=== PATIENT | male | born 1950 | race Caucasian/White ===

== ENCOUNTER 2019-07-25 08:28 | Inpatient (IN) ==
--- NOTE | 2019-07-08 16:31 | PAT Medication Instructions ---
Medication Instructions Date of Service July 08, 2019 Home Medications Medication Instructions Recorded leuprolide (3 month) 22.5 mg (3 22.5 mg IM ONCE #1 ea 06/11/19 month) intramuscular syringe kit amlodipine 10 mg PO QAM lisinopril-hydrochlorothiazide 1 tab PO QAM omeprazole 20 mg PO QAM pravastatin 10 mg PO QPM aspirin 81 mg tablet,delayed release 81 mg PO cartilage 40 mg-collagen II-boron 5 mg-hyaluronate sod 3.3 mg tablet 1 tab PO QAM cyclobenzaprine 10 mg tablet 10 mg PO HS ibuprofen 200 mg tablet 200 mg PO Q6H PRN sildenafil (pulm.hypertension) 20 mg tablet 40 mg PO DAILY PRN leuprolide (3 month) 22.5 mg (3 month) intramuscular syringe kit 22.5 mg IM ONCE vitamins-lipotropics [Lipo-Flavonoid Plus] 1 tab PO BIDM finasteride 5 mg PO DAILY Continue as directed leuprolide (3 month) 22.5 mg (3 month) intramuscular syringe kit 22.5 mg IM ONCE ASK your surgeon for instructions aspirin 81 mg tablet,delayed release 81 mg PO ibuprofen 200 mg tablet 200 mg PO Q6H PRN STOP taking 2 weeks before surgery If surgery is within 2 weeks, stop taking as soon as possible. cartilage 40 mg-collagen II-boron 5 mg-hyaluronate sod 3.3 mg tablet 1 tab PO QAM vitamins-lipotropics [Lipo-Flavonoid Plus] 1 tab PO BIDM DO NOT take the morning of surgery lisinopril-hydrochlorothiazide 1 tab PO QAM sildenafil 20 mg tablet 40 mg PO DAILY PRN Take morning of surgery With a small sip of water, OTHERWISE NOTHING TO EAT OR DRINK AFTER MIDNIGHT: amlodipine 10 mg PO QAM omeprazole 20 mg PO QAM finasteride 5 mg PO DAILY Take evening before surgery pravastatin 10 mg PO QPM cyclobenzaprine 10 mg tablet 10 mg PO HS sildenafil 20 mg tablet 40 mg PO DAILY PRN (if needed) Other Notes If you have any questions please call us at [phone] or [phone] or [phone] or [phone]
--- NOTE | 2019-07-09 08:55 | Anesthesiology Consultation ---
Date of Service July 09, 2019 Assessment & Plan (1) Encounter for pre-operative examination: Chart Review Chart Review: Acceptable Risk for Surgery (pending pre op testing--labs, ekg, cxr) and Patient seen in Pre Admission Testing Teaching & Discussion Instructed NPO after midnight before surgery, except medications with 15 cc of water. Medication instructions provided according to the PAT guidelines. History Surgery Operation Date: 07/25/19 10:10 Proposed Procedures p Robotic Laparoscopic Prostatectomy, Possible Pelvic Lymph Node Dissection, Possible Suprapubic Tube - Vel Masterson MD Height/Weight Height: 5 ft 8.5 in Weight: 85.5 kg Allergies Allergy/AdvReac Type Severity Reaction Status Date / Time Penicillins AdvReac Stomach Verified 07/05/19 08:49 Upset / Diarrhea Sulfa (Sulfonamide AdvReac Stomach Verified 07/05/19 08:49 Antibiotics) Upset / Diarrhea Medications Home Medications Medication Instructions Recorded Confirmed Last Taken amlodipine 10 mg PO QAM 03/21/18 07/05/19 04/20/18 04:00 lisinopril-hydrochlorothiazide 1 tab PO QAM 03/21/18 07/05/19 04/19/18 07:00 omeprazole 20 mg PO QAM 03/21/18 07/05/19 04/20/18 04:00 pravastatin 10 mg PO QPM 03/21/18 07/05/19 03/23/18 aspirin 81 mg tablet,delayed 81 mg PO .3xweek tab 05/30/19 07/05/19 Unknown release cartilage 40 mg-collagen II-boron 1 tab PO QAM tab 05/30/19 07/05/19 Unknown 5 mg-hyaluronate sod 3.3 mg tablet cyclobenzaprine 10 mg tablet 10 mg PO HS 05/30/19 07/05/19 Unknown ibuprofen 200 mg tablet 200 mg PO Q6H PRN 05/30/19 07/05/19 Unknown sildenafil (pulm.hypertension) 20 40 mg PO DAILY PRN tab 05/30/19 07/05/19 Unknown mg tablet leuprolide (3 month) 22.5 mg (3 22.5 mg IM ONCE #1 ea 06/11/19 07/05/19 Unknown month) intramuscular syringe kit vitamins-lipotropics 1 tab PO BIDM 06/14/19 07/05/19 Unknown [Lipo-Flavonoid Plus] finasteride 5 mg PO DAILY 07/05/19 07/05/19 Unknown Past Medical History Medical History GERD (gastroesophageal reflux disease) Hx of Lyme disease Hyperlipidemia Hypertension Osteoarthritis Peyronie's disease Prostate cancer Tinnitus Exercise / Class Metabolic Activity II 4-5 Yardwork/Stairs/Walk up hill (Denies CP or SOB with 1 FOS) Past Surgical History Surgical History History of arthroscopy 2004 - LEFT KNEE History of colonoscopy 2006, 2016 History of prostate biopsy 12/[address] Price, 05/06/[address] Castellano (Positive) History of surgery 1966 - RT INDEX FINGER History of total left hip replacement 04/20/2018 @ [facility] Hx of tonsillectomy As a child Past Anesthesia History No Hx of Anesthesia Complications and No Family Hx of Anesthesia Complications History of PONV No Hx of PONV and No Hx of Motion Sickness Social History Smoking Status: Never smoker Do You Dip or Chew Tobacco: No Hx Alcohol Use: Yes Alcohol type: beer alcohol intake frequency: 0-2 drinks per day Hx Substance Use: Yes (OCCASSIONALLY) substance use type: marijuana Review of Systems Pt denies any recent chest pain, shortness of breath, palpitations, cough, fever or URI. Physical Exam Vital Signs BP: 165/84 (pt states earlier this week systolic was 130s at PCP office) P: 87bpm SPO2: 99% RA T: 97.9 F R: 16 Constitutional Visibly anxious. ENMT Mouth: no dental restorations, no chipped teeth and no loose teeth Thyromental Distance: > or= 3.5 Finger Breadths (4) Mallampati Class: II Neck normal visual inspection; neck extension not limited Respiratory normal respiratory effort Auscultation: lungs clear to auscultation bilaterally Cardiovascular Rate/Rhythm: regular rate and regular rhythm Heart Sounds: no murmur Vessels: no carotid bruit
--- NOTE | 2019-07-09 09:20 | XRay Report ---
XR chest Pre-admission PA/Lat CLINICAL HISTORY: 69 years-old Male presenting with preoperative assessment. TECHNIQUE: PA and lateral views of the chest were obtained. COMPARISON: 03/26/2018. FINDINGS: Cardiomediastinal silhouette normal. Lungs and pleural spaces clear. Degenerative changes of the thor acic spine. Upper abdomen normal. IMPRESSION: 1. No acute cardiopulmonary disease. ACT 112: Negative or not required by law. Electronically signed by: Alfonso Davies M.D. 07/09/2019 9:19 AM
--- NOTE | 2019-07-09 10:44 | Electrocardiogram Report ---
Test Reason : Blood Pressure : / mmHG Vent. Rate : 081 BPM Atrial Rate : 081 BPM P-R Int : 140 ms QRS Dur : 080 ms QT Int : 370 ms P-R-T Axes : 069 063 060 degrees QTc Int : 429 ms Normal sinus rhythm Normal ECG When compared with ECG of 26-MAR-2018 09:23, Premature atrial complexes are no longer Present Confirmed by Marc Kelly ([id number]) on 07/09/2019 10:43:49 AM Referred By: Vel Masterson Confirmed By:Marc Kelly
[2019-07-09 10:52] LABS: Appearance Urine Clear (Clear); Basophils # (auto) 0.05 K/uL (0-0.2); Basophils % (auto) 0.5 %; Bilirubin Urine Negative (Negative); Blood Urine Negative (Negative); Color Urine Yellow; Eosinophils # (auto) 0.17 K/uL (0-0.5); Eosinophils % (auto) 1.6 %; Glucose Urine UA Negative (Negative); Hematocrit (blood only) 43.2 % (42-52); Hemoglobin 14.6 g/dL (14.0-18.0); Immature Granulocytes # (auto) 0.09 K/uL (0.00-0.02); Immature Granulocytes % (auto) 0.9 %; Ketones Urine Negative (Negative); Leukocyte Esterase Urine Negative (Negative); Lymphocytes # (auto) 2.74 K/uL (1.2-3.4); Lymphocytes % (auto) 26.5 %; Mean Corpuscular Hemoglobin 31.1 pg (25-34); Mean Corpuscular Hgb Conc 33.8 g/dL (32-36); Mean Corpuscular Volume 92.1 fL (80-100); Mean Platelet Volume 9.1 fL (7.4-10.4); Monocytes # (auto) 1.86 K/uL (0.11-0.59); Neutrophils # (auto) 5.42 K/uL (1.4-6.5); Neutrophils % (auto) 52.5 %; Nitrite Urine Negative (Negative); Platelet Count 460 K/uL (130-400); Protein Urine Negative (Negative); RDW Coefficient of Variation 12.9 % (11.5-14.5); RDW Standard Deviation 43.1 fL (36.4-46.3); Red Blood Count 4.69 M/uL (4.7-6.1); Specific Gravity Urine 1.014 (1.000-1.030); Urobilinogen Urine Negative (Negative); White Blood Count 10.33 K/uL (4.8-10.8)
[2019-07-09 10:56] LABS: BUN Creatinine Ratio 18.8 (10-20); Calcium 9.9 mg/dl (8.5-10.1); Creatinine Clr Calc Pharmacy 82.5 ml/min; Est GFR (African American) 98.7; Est GFR (Non-African American) 85.2; Potassium 4.9 mmol/L (3.5-5.1)
[~2019-07-25 08:28] MED LIST: ACETAMINOPHEN 1000 MG/100 ML IV IV SCH; CEFAZOLIN 2000MG 2,000 MG/15 ML SYR IV SCH; HEPARIN SOD 5,000 UNIT/0.5 ML VIAL SQ SCH; LACTATED RINGER'S 1,000 ML IV SCH; LR 15ML/HR IV SCH; MIDAZOLAM HCL 1 MG/ML 2ML VIAL ONE; fentaNYL citrate 100 MCG/2 ML VIAL ONE
[2019-07-25] MEDS ORDERED: CEFAZOLIN 2,000 MG/15 ML IV PUSH IV ONE (09:33)
--- NOTE | 2019-07-25 10:13 | History & Physical Bridge Note ---
Date of Service July 25, 2019 History & Physical Bridge Note I have examined the patient, reviewed the History & Physical and in the interval since the performance of the History & Physical I have noted the following changes of clinical significance: no changes noted
[2019-07-25] MEDS ORDERED: LABETALOL HCL IV 5 MG/ML 20ML IV PRN (10:37)
[2019-07-25] MEDS ORDERED: ATROPINE SULFATE 0.1 MG/ML 10ML SYR IV PRN (10:37)
[2019-07-25] MEDS ORDERED: ONDANSETRON INJ 2 MG/ML 2 ML VIAL IV PRN ×2 (10:37→16:00)
[2019-07-25] MEDS ORDERED: KETOROLAC TROMETHAMINE 15 MG/ML VIAL IV PRN (10:43)
[2019-07-25] MEDS ORDERED: BUPIVACAINE 0.5 % 5 MG/1 ML MPF 30ML VIAL ONE (10:50)
[2019-07-25] MEDS ORDERED: HYDROmorphone INJ 2 MG/ML SYR/VIAL ONE (11:19)
[2019-07-25] MEDS ORDERED: SURGICEL ABSORB HEMOSTAT 2IN X 14IN TOP ONE (12:16)
[2019-07-25] MEDS ORDERED: FLOSEAL HEMOSTATIC MATRIX 10ML TOP ONE (12:32)
[2019-07-25] MEDS ORDERED: ONDANSETRON INJ 2 MG/ML 2 ML VIAL ONE (13:04)
[2019-07-25] MEDS ORDERED: PROPOFOL IV EMULSION 10 MG/ML 20 ML VIAL IV ONE (13:04)
[2019-07-25] MEDS ORDERED: GLYCOPYRROLATE 0.2 MG/ML VIAL ONE (13:04)
[2019-07-25] MEDS ORDERED: LIDOCAINE HCL 2% 2 ML VIAL/AMP(20MG/ML) INFIL ONE (13:04)
[2019-07-25] MEDS ORDERED: PHENYLEPHRINE 100MCG/ML 5ML SYR ONE (13:04)
[2019-07-25] MEDS ORDERED: NEOSTIGMINE METHYLSULFATE 5 MG/5 ML SYR ONE (13:04)
[2019-07-25] MEDS ORDERED: ROCURONIUM BROMIDE 10 MG/ML 5 ML VIAL ONE (13:04)
[2019-07-25] MEDS ORDERED: DEXAMETHASONE SOD INJ 4 MG/ML VIAL ONE (13:04)
[2019-07-25] MEDS ORDERED: ePHEDrine sulfate 50 MG/ML SYR ONE (13:04)
[2019-07-25] MEDS ORDERED: LARYING-O-JET KIT (LTA) ONE (13:17)
[2019-07-25] MEDS ORDERED: metroNIDAZOLE 500 MG/100 ML BAG IV ONE (13:45)
--- NOTE | 2019-07-25 14:41 | Operative Report ---
PG Post Operative Report Pre & Post Diagnosis Operation Date: 07/25/19 10:30 Pre-Op Diagnosis: Prostate Cancer Post-Op Diagnosis: Prostate Cancer I identified the patient and participated in the time-out.: Yes Procedure Operation Date: 07/25/19 10:30 Actual Procedures p Robotic Assisted Laparoscopic Prostatectomy and Bilateral Pelvic Lymph Node Dissection(Not Applicable) - Vel Masterson MD Surgeon Vel Masterson MD Appeals Representative FRANKLIN Badillo Estimated Blood Loss 100 Findings Consistent with Post-Op Diagnosis Specimens Prostate + R SV, L SV, R PLN, L PLN, periprostatic fat Description of Procedure See above I attest to the content of the Intraoperative Record and any orders documented therein. Any exceptions are noted below.
[2019-07-25] MEDS: HYDROmorphone INJ 1 MG/ML SYRINGE IV PRN ×6 (15:04→15:29)
[2019-07-25 15:16] LABS: Basophils # (auto) 0.02 K/uL (0-0.2); Basophils % (auto) 0.1 %; Hematocrit (blood only) 37.3 % (42-52); Hemoglobin 12.8 g/dL (14.0-18.0); Immature Granulocytes # (auto) 0.05 K/uL (0.00-0.02); Immature Granulocytes % (auto) 0.3 %; Lymphocytes # (auto) 0.59 K/uL (1.2-3.4); Lymphocytes % (auto) 3.8 %; Mean Corpuscular Hemoglobin 30.9 pg (25-34); Mean Corpuscular Volume 90.1 fL (80-100); Mean Platelet Volume 8.7 fL (7.4-10.4); Monocytes % (auto) 2.6 %; Neutrophils % (auto) 93.2 %; Platelet Count 370 K/uL (130-400); RDW Coefficient of Variation 12.6 % (11.5-14.5); RDW Standard Deviation 41.1 fL (36.4-46.3); Red Blood Count 4.14 M/uL (4.7-6.1); White Blood Count 15.66 K/uL (4.8-10.8)
[2019-07-25 15:17] LABS: Mean Corpuscular Hgb Conc 34.3 g/dL (32-36)
[2019-07-25 15:38] LABS: BUN Creatinine Ratio 11.4 (10-20); Calcium 9.5 mg/dl (8.5-10.1); Creatinine Clr Calc Pharmacy 56.1 ml/min; Est GFR (African American) 68.8; Est GFR (Non-African American) 59.4; Potassium 3.9 mmol/L (3.5-5.1)
--- NOTE | 2019-07-25 15:41 | Anesthesiology Progress Note ---
Date of Service July 25, 2019 Anesthesia Post Procedure Vital Signs Vital Signs: Temp Pulse Pulse Resp BP Pulse Ox 07/25/19 15:30 36.5 C 82 16 140/73 100 07/25/19 15:20 75 16 135/86 100 07/25/19 15:10 78 13 134/74 100 07/25/19 15:00 81 13 126/75 99 07/25/19 14:54 36.0 C L 88 16 118/81 99 07/25/19 09:01 36.5 C 88 20 136/79 100 Pain Intensity Generalized: Pain Intensity: 4 Abdomen: Pain Intensity: 5 Transfer of Care Handoff Completed per policy Notes Mental Status: alert / awake / arousable Patient Amnestic to Procedure: Yes Nausea / Vomiting: adequately controlled Pain: adequately controlled Airway Patency, RR, SpO2: stable & adequate BP & HR: stable & adequate Hydration State: stable & adequate Anesthetic Complications: no major complications apparent
[2019-07-25] MEDS ORDERED: HYDROmorphone INJ 0.5 MG/0.5 ML SYR IV PRN (16:00)
[2019-07-25] MEDS ORDERED: HYDROmorphone INJ 1 MG/ML SYRINGE IV PRN (16:00)
[2019-07-25] MEDS ORDERED: OXYCODONE HCL IR 5 MG TAB (IMMEDIATE RELEASE) PO PRN ×2 (16:00)
[2019-07-25] MEDS: LACTATED RINGER'S 1,000 ML IV SCH (18:06)
[2019-07-25] MEDS: CEFAZOLIN 2000MG 2,000 MG/15 ML SYR IV SCH (18:07)
[2019-07-25] MEDS: ACETAMINOPHEN 1,000 MG/100 ML VIAL IV SCH (18:07)
[2019-07-25] MEDS: DOCUSATE SODIUM 100 MG CAP PO SCH (20:42)
[2019-07-25] MEDS: HEPARIN SOD 5,000 UNIT/0.5 ML VIAL SQ SCH (20:44)
[2019-07-25] MEDS: metroNIDAZOLE 500 MG/100 ML BAG IV SCH (20:52)
[2019-07-25] MEDS ORDERED: PRAVASTATIN SOD 10 MG TAB PO SCH (21:00)
[2019-07-25] MEDS ORDERED: CYCLOBENZAPRINE HCL 10 MG TAB PO SCH (21:00)
[2019-07-26] MEDS: ACETAMINOPHEN 1,000 MG/100 ML VIAL IV SCH ×2 (01:18→10:12)
[2019-07-26] MEDS: CEFAZOLIN 2000MG 2,000 MG/15 ML SYR IV SCH (01:18)
[2019-07-26] MEDS: LACTATED RINGER'S 1,000 ML IV SCH (03:40)
[2019-07-26] MEDS: metroNIDAZOLE 500 MG/100 ML BAG IV SCH ×2 (03:40→12:19)
[2019-07-26 06:08] LABS: Basophils # (auto) 0.02 K/uL (0-0.2); Basophils % (auto) 0.2 %; Hematocrit (blood only) 35.3 % (42-52); Immature Granulocytes # (auto) 0.02 K/uL (0.00-0.02); Immature Granulocytes % (auto) 0.2 %; Lymphocytes # (auto) 1.49 K/uL (1.2-3.4); Lymphocytes % (auto) 11.9 %; Mean Corpuscular Hemoglobin 30.3 pg (25-34); Mean Corpuscular Volume 89.1 fL (80-100); Mean Platelet Volume 9.1 fL (7.4-10.4); Monocytes # (auto) 1.07 K/uL (0.11-0.59); Monocytes % (auto) 8.5 %; Neutrophils # (auto) 9.92 K/uL (1.4-6.5); Neutrophils % (auto) 79.2 %; Platelet Count 362 K/uL (130-400); RDW Coefficient of Variation 12.5 % (11.5-14.5); RDW Standard Deviation 40.2 fL (36.4-46.3); Red Blood Count 3.96 M/uL (4.7-6.1); White Blood Count 12.52 K/uL (4.8-10.8)
[2019-07-26 06:41] LABS: BUN Creatinine Ratio 14.9 (10-20); Calcium 9.2 mg/dl (8.5-10.1); Creatinine Clr Calc Pharmacy 86.9 ml/min; Est GFR (African American) 106.4; Est GFR (Non-African American) 91.8; Potassium 3.7 mmol/L (3.5-5.1)
--- NOTE | 2019-07-26 07:35 | Anesthesiology Progress Note ---
Date of Service July 26, 2019 Anesthesia Post Procedure Vital Signs Vital Signs: Temp Pulse Pulse Resp BP BP Pulse Ox 07/26/19 03:30 36.9 C 86 15 144/78 H 96 07/25/19 22:52 36.8 C 99 H 16 150/76 H 93 07/25/19 19:17 36.6 C 85 18 127/79 94 07/25/19 17:55 36.3 C L 94 H 18 100/61 93 07/25/19 16:57 36.5 C 93 H 18 107/70 93 07/25/19 16:27 36.7 C 96 H 16 106/57 L 96 07/25/19 15:55 36.5 C 90 16 134/77 100 07/25/19 15:45 83 16 132/75 100 07/25/19 15:30 36.5 C 82 16 140/73 100 07/25/19 15:20 75 16 135/86 100 07/25/19 15:10 78 13 134/74 100 07/25/19 15:00 81 13 126/75 99 07/25/19 14:54 36.0 C L 88 16 118/81 99 07/25/19 09:01 36.5 C 88 20 136/79 100 Pain Intensity Generalized: Pain Intensity: 4 Abdomen: Pain Intensity: 4 Notes Mental Status: alert / awake / arousable and participated in evaluation Patient Amnestic to Procedure: Yes Nausea / Vomiting: adequately controlled Pain: adequately controlled Airway Patency, RR, SpO2: stable & adequate BP & HR: stable & adequate Hydration State: stable & adequate Anesthetic Complications: Pt Satisfied with anesthetic care
--- NOTE | 2019-07-26 07:51 | Operative Report ---
DATE OF OPERATION: 07/25/2019 PREOPERATIVE DIAGNOSIS: Clinical T2, Santa 4+4 adenocarcinoma of the prostate with preoperative Lupron provided. POSTOPERATIVE DIAGNOSIS: Clinical T2, Santa 4+4 adenocarcinoma of the prostate with preoperative Lupron provided. PROCEDURE: Robot-assisted laparoscopic radical retropubic prostatectomy with bilateral pelvic lymph node dissection and repair of a pinpoint rectal injury. ANESTHESIA: General anesthesia with endotracheal intubation plus local at port sites. SURGEON: Vel Masterson MD SPACE PHYSICIST: FRANKLIN Merritt. Video Intern present throughout the case for retraction, suction, passage of instruments, division of suture, passage of suture material, patient exposure, positioning, port placement and general patient safety. ESTIMATED BLOOD LOSS: 100 mL. IV FLUIDS: 1400 mL crystalloid. SPECIMENS LEFT IN PLACE: Include an 18-Uzbek silicone Dickens catheter with 10 mL of sterile water in the balloon and #10 ERIBERTO drain in left lower quadrant. FINDINGS: Significant periprostatic inflammation consistent with prior androgen deprivation effect. Pinpoint rectal injury noted on rectal insufflation test, closed in 3 layers, but airtight after the first. SPECIMENS SENT TO PATHOLOGY: Periprosthetic fat, left seminal vesicle, prostate plus right seminal vesicle, left pelvic lymph nodes, right pelvic lymph nodes. BRIEF HISTORY: Mr. Thakur is a pleasant 69-year-old male who is quite intact met in the evaluation and management of his new diagnosis of Santa 4+4 adenocarcinoma of the prostate diagnosed by Dr. Castellano for elevated PSA and abnormal digital rectal exam. After discussion of risks and benefits of various forms of intervention, he has decided upon a robot-assisted laparoscopic radical retropubic prostatectomy to manage his disease. Please see H and P for further details. He was provided with intravenous cephalosporins today for antibiotic coverage and SCDs were used for DVT prophylaxis as well as subcutaneous heparin. The patient was provided with intravenous Tylenol preoperatively for additional analgesia. Informed consent reviewed in the chart preoperatively with the patient and his family today. DESCRIPTION OF PROCEDURE: The patient was properly identified and brought into the operative suite after identification of appropriate consent on the chart. General anesthesia with endotracheal intubation was initiated. The patient was prepped and draped in standard fashion for this procedure. timekeeping supervisor-out procedure was followed. All port sites were anesthetized with local prior to incision. A transverse supraumbilical incision was made and used to enter the abdomen under direct visualization using a visual obturator and a 0-degree laparoscope. Abdomen was entered and insufflated to 15 mmHg. Abdomen was surveyed and noted to be free of any worrisome anatomic variables. The ports were placed for a 4th arm robotic template including two 8 mm left-sided robotic ports, one 8 mm right-sided robotic port, a 5 and 12 mm assistant district attorney port. The patient was placed in Trendelenburg and robot was brought in and docked. A 0 degree lens was used to drop the bladder down to the level of the pubic bone. A true pelvis was entered and periprostatic fat was removed and sent for pathologic analysis. At this point, it was noted the patient had significant amounts of periprostatic inflammation and evidence of decreasing prostate volume associated with androgen deprivation therapy. The implications for pathologic analysis have been discussed with the patient preoperatively, who vocalizes good understanding of the treatment plan. The endopelvic fascia was sharply entered on both sides and dissection was carried down to the level of the apex of the prostate. Dorsal venous complex was skeletonized and then controlled in a [id number] fashion using 0 Vicryl suture. Attention was then turned to the lateral aspects of the prostate which were defined and dissected free. Bladder was placed on tension using the 4th arm and a 30-degree down lens was used to dissect bluntly and sharply down to the level of the Dickens catheter were traversed the base of the prostate into the bladder. This was then delivered from the anterior vesicotomy and used for anterior traction on the prostate gland. The median lobe was encountered within the bladder to be circumscribed without significant difficulties or an increase in the aperture of the bladder neck. Posterior bladder neck was divided and dissection was carried out posterior to the prostate until the vas deferens were visualized in the midline deep. Vessel sealer was used to control the inferior vesicle pedicles and prostatic pedicles on both sides. At this point, the vas deferens were circumscribed and divided and the seminal vesicles were then dissected free. Posterior dissection was carried out using cold scissors by dropping the rectum up to the level of the apex of the prostate. Again, copious amounts of periprostatic inflammation were present. After the prostatic pedicles had been divided, cold scissors were used to complete the lateral dissection up to the level of the apex of the prostate. After this was complete, the 0 degree lens was replaced to allow for better visualization of the apex of the prostate and hot scissors were used to divide the dorsal venous complex. Urethra was skeletonized and inflammatory apex of the prostate was dissected free from surrounding it. The rectourethralis fibers were taken and prostate was brought up into the abdomen where it was placed within an EndoCatch bag for retrieval at the end of the case. The pelvis was filled with saline irrigation and the rectum was insufflated demonstrating the escape of bubbles consistent with an occult rectal injury. Careful inspection revealed a pinpoint rectal injury at the level of the left apex of the prostate. No other injuries were appreciated and no significant thermal damage was noted at the level of the rectum. A 3-0 silk suture was used in a [id number] fashion to oversew the rectal injury using an imbricated technique. After a single layer, the pelvis was again filled with irrigation and rectum was insufflated demonstrating resolution of the leak with good distention of the rectum and no evidence of any other filling of the serosa or damage. Despite the airtight closure, two additional layers of reinforcement was performed, reapproximating the serosa in a Lembert style closure. This was done using a 3-0 silk and 2-0 silk suture respectively. After this was complete, the area was felt to be well repaired. FloSeal tissue sealant was placed over the prostatic bed after generous irrigation of the pelvis had been undertaken for additional hemostasis. An additional dose of Flagyl was provided intraoperatively at this time to assist with broad-spectrum antibiotic coverage. Attention was then turned to the pelvic lymph node dissection which was undertaken on both sides. The external iliac vein in the pelvic sidewall and the obturator nerve were used as the confines of the dissection of an inflamed and rachel packet. Weck clips and monopolar cautery were used as necessary for control of vessels and lymphatics. Great care was taken to ensure no injury to the obturator nerve, which was noted to be intact at the end of the case. After this was completed, additional FloSeal tissue sealant was placed within the obturator fossa. A second EndoCatch bag was used for placement of the pelvic lymph node packets with the left side being tagged with a Weck clip. Attention was then turned to the pelvis where again excellent hemostasis was noted. A continent bladder neck was appreciated. This was an excellent urethral stump. Using a double armed V-Loc suture, a circumferential running vesicourethral anastomosis was completed. Dickens catheter was visualized entering the bladder prior to completion of the closure. A 10 mL of sterile water were placed within the balloon and bladder was distended with greater than 120 mL of sterile saline and noted to be watertight. Seeing the patient's rectal injury, decision was made to avoid the placement of a suprapubic tube to allow for more complete urethral drainage with a Dickens catheter. Fourth arm was removed and #10 ERIBERTO drain was placed via the fourth arm port. This was placed within the confines of the pelvis while in placing it directly over the anastomosis. Robotic instruments were removed and robot was dedocked. Camera was brought in via the assistant district attorney 12 mm port and strings to the EndoCatch bag were brought up through the supraumbilical port, which was then sufficiently enlarged over the 12 mm ports to allow for easy removal. Specimens were inspected and handed off for pathologic analysis. Excess carbon dioxide gas was removed from the abdomen and the fascia was closed at the level of the supraumbilical incision using 0 Vicryl suture on a UR-5 needle. A 0 Vicryl sutures were also used in subcutaneous tissues to reapproximate them at this level. A 2-0 silk was used to secure the ERIBERTO drain in place and 4-0 Monocryl and Dermabond were used at the level of the skin. A catheter was placed to gravity drainage and anesthesia was reversed. The patient was transferred to the recovery room in stable condition. FOLLOWUP CARE: The patient will be admitted to the floor for standard management with the inclusion of Flagyl coverage intravenously over the course of his admission. Findings intraoperatively were discussed with the patient's postoperatively, who vocalizes good understanding of the treatment plan. I attest to the content of the Intraoperative Record and any orders documented therein. Any exception s are noted below.
--- NOTE | 2019-07-26 08:28 | Urology Progress Note ---
Date of Service July 26, 2019 Assessment & Plan (1) Prostate cancer: A/P 69 yo male POD#1 s/p RALRP, BPLND. Doing well. Advance diet and activity today. Avoid constipation, measures reviewed, low residue diet. OK to HTIVF in PM. Intraop findings and pinpoint rectal injury reviewed - repaired in 3 layers, airtight after first figure of eight suture, I do not expect significant deviation from typical postop course. Will DC on Cipro, IV Flagyl provided intra- and perioperatively. Patient vocalizes understandings of intraop findings. OP TOV and f/u visit in place. Subjective 69 yo male POD#1 s/p RALRP, PLND, repair of pinpoint rectal injury. He reports ambulating in halls, taking clears without trouble. He notes incisional pain, controlled, no f/c/n/v. Review of Systems Constitutional: no fever and no chills Eyes: no diplopia Ear, Nose, Mouth, Throat: no ear trauma Respiratory: no hemoptysis Cardiovascular: no chest pain Gastrointestinal: + abdominal pain; no nausea and no vomiting Genitourinary: + as per Subjective / HPI Integumentary: no acne and no boil Neurologic: no paralysis Psychiatric: no hopelessness Allergy / Immunological: no tongue swelling Physical Exam Constitutional: well developed and well nourished; no acute distress Eyes: eyes not dysmorphic ENMT: Ears: no external ear abnormality Neck: trachea midline; no anterior neck swelling Respiratory: no respiratory distress and does not use accessory muscles Cardiovascular: Vessels: radial pulses present Gastrointestinal (Abdomen): Inspection/Auscultation: abdomen not distended Percussion/Palpation: abdomen soft; abdomen nontender inc c/d/i Musculoskeletal: Head/Neck/Chest: normocephalic and neck supple Skin: normal turgor Neurologic: awake; not obtunded Psychiatric: Orientation: oriented x 3 Lymphatic: no lymphadenopathy Results & Data Vital Signs (Past 12 Hours) Vital Signs Temp Pulse Resp BP Pulse Ox 07/26/19 07:51 36.9 C 102 H 18 171/89 H 98 07/26/19 03:30 36.9 C 86 15 144/78 H 96 07/25/19 22:52 36.8 C 99 H 16 150/76 H 93 Laboratory Results Laboratory Results - last 48 hr 07/25/19 07/25/19 07/25/19 08:52 15:04 15:04 WBC 15.66 H RBC 4.14 L Hgb 12.8 L Hct 37.3 L MCV 90.1 MCH 30.9 MCHC 34.3 RDW Std Deviation 41.1 RDW Coeff of Bashir 12.6 Plt Count 370 MPV 8.7 Immature Gran % (Auto) 0.3 Neut % (Auto) 93.2 Lymph % (Auto) 3.8 [place] % (Auto) 2.6 Eos % (Auto) 0.0 Baso % (Auto) 0.1 Immature Gran # (Auto) 0.05 H Neut # (Auto) 14.60 H Lymph # (Auto) 0.59 L [place] # (Auto) 0.40 Eos # (Auto) 0.00 Baso # (Auto) 0.02 Sodium 135 L Potassium 3.9 Chloride 102 Carbon Dioxide 27 Anion Gap 6.0 BUN 14 Creatinine 1.24 Est Cr Clr Drug Dosing 56.1 Est GFR ( Amer) 68.8 Est GFR (Non-Af Amer) 59.4 BUN/Creatinine Ratio 11.4 Glucose 162 H Calcium 9.5 Hepatitis C Ab Screen Neg 07/26/19 07/26/19 05:29 05:29 WBC 12.52 H RBC 3.96 L Hgb 12.0 L Hct 35.3 L MCV 89.1 MCH 30.3 MCHC 34.0 RDW Std Deviation 40.2 RDW Coeff of Bashir 12.5 Plt Count 362 MPV 9.1 Immature Gran % (Auto) 0.2 Neut % (Auto) 79.2 Lymph % (Auto) 11.9 [place] % (Auto) 8.5 Eos % (Auto) 0.0 Baso % (Auto) 0.2 Immature Gran # (Auto) 0.02 Neut # (Auto) 9.92 H Lymph # (Auto) 1.49 [place] # (Auto) 1.07 H Eos # (Auto) 0.00 Baso # (Auto) 0.02 Sodium 133 L Potassium 3.7 Chloride 100 Carbon Dioxide 27 Anion Gap 6.0 BUN 12 Creatinine 0.80 D Est Cr Clr Drug Dosing 86.9 Est GFR ( Amer) 106.4 Est GFR (Non-Af Amer) 91.8 BUN/Creatinine Ratio 14.9 Glucose 124 H Calcium 9.2 Hepatitis C Ab Screen PG Care Time/CCT Total # of Minutes Spent Total Time Spent with Patient: Total time spent is greater than 50% in coordination of care (as documented) at patient's floor/unit and/or counseling patient: Coding Level of Care Code 79511 Subseq Hosp Care Lvl 2 Diagnoses Prostate cancer C61
[2019-07-26] MEDS ORDERED: PANTOprazole 40 MG TAB PO SCH (09:00)
[2019-07-26] MEDS ORDERED: LISINOPRIL/HCTZ 20/25MG 1 TAB PO SCH (09:00)
[2019-07-26] MEDS ORDERED: AMLODIPINE BESYLATE 5 MG TAB PO SCH (09:00)
[2019-07-26] MEDS: HEPARIN SOD 5,000 UNIT/0.5 ML VIAL SQ SCH (09:02)
[2019-07-26] MEDS: DOCUSATE SODIUM 100 MG CAP PO SCH (09:02)
== END 2019-07-26 14:39 | disposition home or self-care (01) | DRG 707 ==
LOC: ASU 08:28 → 3W 14:56

== ENCOUNTER 2023-05-12 07:25 | Observation (INO) ==
--- NOTE | 2023-04-17 11:44 | PAT Medication Instructions ---
Medication Instructions Date of Service April 17, 2023 Home Medications omeprazole 20 mg tablet,delayed release 20 mg PO QAM pravastatin 10 mg tablet 10 mg PO QPM cartilage 40 mg-collagen II-boron 5 mg-hyaluronate sod 3.3 mg tablet (Move Free Ultra Triple Action (boron)) 1 tab PO QAM cyclobenzaprine 10 mg tablet 10 mg PO HS ibuprofen 200 mg tablet 200 mg PO Q6H PRN vitamins-lipotropics 200 mg-100 mg tablet (Lipo-Flavonoid Plus) 1 tab PO BID lisinopril 20 mg tablet 20 mg PO QAM acetaminophen 500 mg tablet 500 mg PO Q6H PRN evolocumab 140 mg/mL subcutaneous pen injector (Repatha SureClick) 140 mg subcut amlodipine 5 mg tablet 5 mg PO QAM amoxicillin 500 mg tablet 2,000 mg PO UD PRN Continue as directed amoxicillin 500 mg tablet 2,000 mg PO UD PRN(if needed) ASK your surgeon for instructions ibuprofen 200 mg tablet 200 mg PO Q6H PRN ASK your prescriber and surgeon evolocumab 140 mg/mL subcutaneous pen injector (Repatha SureClick) 140 mg subcut STOP taking 2 weeks before surgery (or as soon as possible if surgery is within 2 weeks) cartilage 40 mg-collagen II-boron 5 mg-hyaluronate sod 3.3 mg tablet (Move Free Ultra Triple Action (boron)) 1 tab PO QAM vitamins-lipotropics 200 mg-100 mg tablet (Lipo-Flavonoid Plus) 1 tab PO BID DO NOT take the morning of surgery lisinopril 20 mg tablet 20 mg PO QAM Take morning of surgery With a small sip of water, OTHERWISE NOTHING TO EAT OR DRINK AFTER MIDNIGHT: omeprazole 20 mg tablet,delayed release 20 mg PO QAM acetaminophen 500 mg tablet 500 mg PO Q6H PRN(if needed) amlodipine 5 mg tablet 5 mg PO QAM Take evening before surgery pravastatin 10 mg tablet 10 mg PO QPM cyclobenzaprine 10 mg tablet 10 mg PO HS acetaminophen 500 mg tablet 500 mg PO Q6H PRN(if needed) Other Notes If you have any questions please call us at [phone] or [phone] or [phone] or [phone]
--- NOTE | 2023-04-20 10:28 | Anesthesiology Consultation ---
Date of Service April 20, 2023 Assessment & Plan (1) Encounter for pre-operative examination: - Infectious disease screening: Per assessment on 04/20/23: No known infectious disease contacts or current infectious disease symptoms. No noted Covid positive test result in past 90 days. - Outpatient joint assessment: Pt currently scheduled for inpatient pathway. If surgeon requests review for outpatient joint pathway, patient is acceptable candidate for outpatient joint program from anesthesia standpoint pending surgeon's office assessment that patient is motivated, has good support and completes [facility] preop requirements. - S/P Right anterior EDDIE (07/16/21): Epidural at L3-4 (x2 attempts) at [facility] - Heme/onc visit (04/14/23 [facility]): "Reactive thrombocytosis accounts for most cases of thrombocytosis. With chronic and mild nature of thrombocytosis this is most likely etiology. Now with presence of leukocytosis. Cannot rule out mye loproliferative neoplasm. Lab orders placed to be completed today ferritin, iron screen, CRP and CMP. Would consider resuming Aspirin 81 mg TIW as stopping this did not improve bruising. With urgent need for knee replacement for quality of life and concern that surgery will be held d/t leukocytosis will repeat course of Cipro as there was previous improvement after course of antibiotics in February. Prescription sent. Will repeat cbc/diff in two weeks. If WBC remains increased after second round of antibiotics can consider for MyGenVar panel to assess for genetic mutations consistent with MPN. From hematology standpoint would not hold surgery for elevated WBC count alone with infectious etiology ruled out. Recommend standard postoperative anticoagulation. RTC in three months with provider with cbc/diff and cmp" - Referred to [place] [facility] by PCP for nonhealing traumatic wounds. RLE wound healed (11/2022 injury in shower). LLE injury (03/2023 while moving patio furniture). Wound clinic aware of upcoming orthopedic surgery. Awaiting upcoming wound visit note ([facility]- appt 04/27). Chart Review Chart Review: Patient seen in Pre Admission Testing Teaching & Discussion Pre-Anesthesia Teaching/Discussion Notes: Instructed NPO after midnight before surgery,except medications with 15 cc of water. Medication instructions provided according to the PAT guidelines. History Surgery Operation Date: 05/12/23 11:35 Proposed Procedures p Right Total Knee Arthroplasty - Chris Moody, Height/Weight Height: 5 ft 7.5 in Weight: 88.3 kg Allergies Allergy/AdvReac Type Severity Reaction Status Date / Time [id number]-[id number] Reductase AdvReac Mild Nausea Verified 04/20/23 08:29 Inhibitor Penicillins AdvReac Stomach Verified 04/20/23 08:29 Upset / Diarrhea Sulfa (Sulfonamide AdvReac Stomach Verified 04/20/23 08:29 Antibiotics) Upset / Diarrhea Medications Home Medications Medication Instructions Recorded Confirmed Last Taken omeprazole 20 mg tablet,delayed 20 mg PO QAM 03/21/18 04/11/23 07/16/21 05:30 release pravastatin 10 mg tablet 10 mg PO QPM 03/21/18 04/11/23 07/15/21 17:00 cartilage 40 mg-collagen II-boron 1 tab PO QAM 05/30/19 04/11/23 07/02/21 5 mg-hyaluronate sod 3.3 mg tablet (Move Free Ultra Triple Action (boron)) cyclobenzaprine 10 mg tablet 10 mg PO HS 05/30/19 04/11/23 07/15/21 21:00 ibuprofen 200 mg tablet 200 mg PO Q6H PRN Pain 05/30/19 04/11/23 07/09/21 vitamins-lipotropics 200 mg-100 mg 1 tab PO BID 06/14/19 04/11/23 07/02/21 tablet (Lipo-Flavonoid Plus) lisinopril 20 mg tablet 20 mg PO QAM 06/09/21 04/11/23 07/15/21 06:30 acetaminophen 500 mg tablet 500 mg PO Q6H PRN Pain 07/16/21 04/11/23 07/15/21 21:00 500 mg evolocumab 140 mg/mL subcutaneous 140 mg subcut .every 2 weeks 01/25/23 04/11/23 Unknown pen injector (Annemarie Barba) amlodipine 5 mg tablet 5 mg PO QAM 04/11/23 04/20/23 Unknown amoxicillin 500 mg tablet 2,000 mg PO UD PRN dental 04/11/23 04/20/23 Unknown appointments Past Medical History Medical History GERD (gastroesophageal reflux disease) Per remote records Patient denies- states PPI is prophylactic for ibuprofen use Hx of Lyme disease 10+ years ago, denies residual issues Hyperlipidemia Hypertension Osteoarthritis Peyronie's disease Prostate cancer Dx 2019, s/p radical prostatectomy Tinnitus Exercise / Class Metabolic Activity III < 4 Walking/Shop/Light housework Past Family History Family History Mother , Passed age 91 of complications from scleroderma No problems noted. Father , Passed age 68 of heart disease complications No problems noted. Sister No problems noted. Sister No problems noted. Son No problems noted. Daughter No problems noted. Past Surgical History Surgical History Elective surgery Right hand CMC joint sx (06/2022) History of arthroscopy Left knee (2004) History of colonoscopy 2006, 2016 History of prostate biopsy [address] Price [address] Castellano (Positive) History of surgery Right index finger (1966) History of total left hip replacement 04/20/2018: SAB at L3-L4 x 1 attempt. No issues per anesthesia postop progress note. Overnight post-op stay without complication per surgeon discharge summary. History of total right hip replacement Right anterior EDDIE (07/16/21): Epidural at L3-4 (x2 attempts) at [facility] Hx of prostatectomy robotic prostatectomy with DaVinci 06/28/2019: Grade 2 view, MAC#3, ETT#7.5, atraumatic. No issues per anesthesia postop progress note. Hx of tonsillectomy childhood Past Anesthesia History No Hx of Anesthesia Complications and No Family Hx of Anesthesia Complications History of PONV No Hx of PONV and No Hx of Motion Sickness Social History Smoking Status: Never smoker Do You Dip or Chew Tobacco: No Hx Alcohol Use: Yes Alcohol type: beer alcohol intake frequency: 3 or more drinks per day (3-4 beers/day) Hx Substance Use: Yes substance use type: marijuana (occasional medical marijuana lotion/creams) Review of Systems Patient denies chest pain, shortness of breath, fever, chills, cough, wheezing, palpitations. Physical Exam Vital Signs VITALS BP 133/72 P 86 TEMP 98.8 SP02 97%RA RESP 18 PHYSICAL Full cervical extension range of motion. Full TMJ range of motion. TMD 4 finger breaths Mallampati Score 2 Dentition: missing molars Lungs: clear throughout to auscultation, right lower side tooth "repaired" Cardiac: regular rate and rhythm with occasional extra beats, no murmurs noted Spine: normal Carotid arteries: negative bruit Extremities: no LE edema Lab Results Anesthesia Preop Results Results Anesthesia Widget: WBC 13.18 K/ul (4.8-10.8) H 04/20/23 Hgb 13.5 g/dl (14.0-18.0) L 04/20/23 Hct 40.5 % (42.0-52.0) L 04/20/23 Plt 515 K/uL (130-400) H 04/20/23 Na 134 mmol/L (136-145) L 04/20/23 K 4.3 mmol/L (3.5-5.1) 04/20/23 Cl 102 mmol/L (98-107) 04/20/23 CO2 22 mmol/L (21-32) 04/20/23 BUN 14 mg/dl (6-23) 04/20/23 Creat 0.78 mg/dl (0.6-1.4) 04/20/23 Glucose Level 102 mg/dl (70-99(Fasting)) H 04/20/23 PT 10.9 Seconds (9.0-12.0) 04/20/23 PTT 33.3 Seconds (21.0-31.0) H 04/20/23 INR 1.0 (0.9-1.1) 04/20/23 Blood Type A Positive 04/20/23 Antibody Screen NEGATIVE 04/20/23 Testing Electrocardiogram Date: 04/20/23 SR with PSVCs at 94bpm. 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 Chest X-Ray Date: 04/20/23 FINDINGS: Lung volumes are normal. Lungs are clear. There is no pneumothorax or pleural effusion. Cardiac size is normal. Mediastinal contours are normal. There is no evidence for pulmonary edema. Incidental note is made of multiple healing bilateral rib fractures. IMPRESSION: No acute cardiopulmonary findings. Other Testing LE venous reflux duplex Date: 03/20/23 Right GSV shows reflux of the proximal calf, only. Left GSV shows reflux at the proximal thigh, only. Bilateral AASVs is show no reflux. Bilateral SSVs show no reflux. Deep system reflux in the left CFV, only. No evidence of DVT within the BLE, above or below knee. Recommendations: Reflux does not meet criteria for endovenous ablation.
--- NOTE | 2023-05-11 14:53 | History & Physical Report ---
Date of Service May 11, 2023 Assessment & Plan (1) Localized osteoarthritis of right knee: We will proceed with a right total knee arthroplasty. Postoperatively he will be started on aspirin for DVT prophylaxis and kept overnight in the hospital for postop medical management. He plans to use energy physical therapy upon discharge. History of Present Illness Chief Complaint: Osteoarthritis of the right knee. Primary Care Provider: Chris Shaver DO Santhosh is a pleasant 72-year-old male who I have done bilateral hip replacements on in the past. He has done very well with those. Unfortunately, he is dealing with severe bilateral knee pain, right worse than left. It has been going on for years. I have given him multiple injections. The injections are no longer helping. He is really struggling. He is using a cane to ambulate. X-rays and clinical examination been diagnostic for advanced osteoarthritis. After failing conservative treatment, he has elected proceed with a right total knee arthroplasty. Allergies Allergy/AdvReac Type Severity Reaction Status Date / Time Ojfsjhw-YAS-WoL Reductase AdvReac Mild Nausea Verified 05/04/23 08:28 Inhibitor Penicillins AdvReac Stomach Verified 05/04/23 08:28 Upset / Diarrhea Sulfa (Sulfonamide AdvReac Stomach Verified 05/04/23 08:28 Antibiotics) Upset / Diarrhea Home Medications Medication Instructions Recorded Confirmed Type omeprazole 20 mg tablet,delayed 20 mg PO QAM 03/21/18 05/04/23 History release pravastatin 10 mg tablet 10 mg PO QPM 03/21/18 05/04/23 History cartilage 40 mg-collagen II-boron 1 tab PO QAM 05/30/19 05/04/23 History 5 mg-hyaluronate sod 3.3 mg tablet (Move Free Ultra Triple Action (boron)) cyclobenzaprine 10 mg tablet 10 mg PO HS 05/30/19 05/04/23 History ibuprofen 200 mg tablet 200 mg PO Q6H PRN Pain 05/30/19 05/04/23 History vitamins-lipotropics 200 mg-100 mg 1 tab PO BID 06/14/19 05/04/23 History tablet (Lipo-Flavonoid Plus) lisinopril 20 mg tablet 20 mg PO QAM 06/09/21 05/04/23 History acetaminophen 500 mg tablet 500 mg PO Q6H PRN Pain 07/16/21 05/04/23 History evolocumab 140 mg/mL subcutaneous 140 mg subcut .every 2 weeks 01/25/23 05/04/23 History pen injector (Annemarie Barba) amlodipine 5 mg tablet 5 mg PO QAM 04/11/23 05/04/23 History amoxicillin 500 mg tablet 2,000 mg PO UD PRN dental 04/11/23 05/04/23 History appointments Past Med/Surg History Medical History Prostate cancer Dx 2019, s/p radical prostatectomy Hx of Lyme disease 10+ years ago, denies residual issues Peyronie's disease Osteoarthritis GERD (gastroesophageal reflux disease) Per remote records Patient denies- states PPI is prophylactic for ibuprofen use Tinnitus Hypertension Hyperlipidemia Surgical History Elective surgery Right hand CMC joint sx (06/2022) History of total right hip replacement Right anterior EDDIE (07/16/21): Epidural at L3-4 (x2 attempts) at [facility] Hx of prostatectomy robotic prostatectomy with DaVinci 06/28/2019: Grade 2 view, MAC#3, ETT#7.5, atraumatic. No issues per anesthesia postop progress note. History of total left hip replacement 04/20/2018: SAB at L3-L4 x 1 attempt. No issues per anesthesia postop p rogress note. Overnight post-op stay without complication per surgeon discharge summary. History of surgery Right index finger (1966) Hx of tonsillectomy childhood History of prostate biopsy [address] Price [address] Castellano (Positive) History of arthroscopy Left knee (2004) History of colonoscopy 2006, 2016 Family History Mother , Passed age 91 of complications from scleroderma No problems noted. Father , Passed age 68 of heart disease complications No problems noted. Sister No problems noted. Sister No problems noted. Son No problems noted. Daughter No problems noted. Social History Smoking Status: Never smoker Second Hand Exposure: Yes (hx as child); Do You Dip or Chew Tobacco: No; Tobacco Cessation Education Requested by Patient: No Hx Alcohol Use: Yes Alcohol type: beer Alcohol Intake Frequency Comment: 6 beers/day give or take Hx Substance Use: Yes Prescribed Medications: Marijuana Preferred Language: Upper Sorbian Communication Ability: Effective Visual Impairment: Limited Hearing Ability: Normal Veneer Trimmer Required: No Beliefs That Will Affect Care: None marital status: Current Living Situation: Spouse current occupational status: retired current occupation: Retired [employer] How many Children do You have: 2 How many Children do You have Comment: able to assist with care as needed. Other Information That Helps Us Care for You: No Feels Safe at Home: Yes Safety Concerns: Feels Safe At This Time Childhood Exposure to Second-Hand Smoke: Yes (Father smoked in home ) Diet: regular caffeine: Yes (2 cups of coffee/day ) during the past year weight has: remained stable Dental Care, Regularly: Yes Assistive Devices: None Review of Systems All systems reviewed & are unremarkable except as noted in HPI & below. Physical Exam On physical examination of the right knee, he has range of motion from 10 to 110 degrees. A slight valgus deformity. Tenderness palpation of the distal femoral condyles and along the joint lines. He does have some easy bruisability around his skin but no signs of ulceration or infection. Constitutional WD/WN, vitals as above Eyes PERRL, conjunctivae normal, anicteric sclerae ENMT external ear and nose normal, oropharynx normal Neck trachea midline, no thyromegaly Respiratory normal respiratory effort Cardiovascular RRR, no murmur, no edema Gastrointestinal (Abdomen) normal bowel sounds, soft, nontender, no hepatosplenomegaly Psychiatric A+Ox3, euthymic affect Results & Data Results & Data Laboratory Results . Diagnostic Findings X-rays of the right knee show advanced osteoarthritis with joint space narrowing, osteophyte formation, and phcf-dt-gamh articulation.. PG Care Time/CCT Total # of Minutes Spent Total Time Spent with Patient: Total time spent is greater than 50% in coordination of care (as documented) at patient's floor/unit and/or counseling patient: Coding Level of Care Code None Diagnoses Localized osteoarthritis of right knee M17.11
[~2023-05-12 07:25] MED LIST changes: -ACETAMINOPHEN 1000 MG/100 ML IV IV SCH; +ACETAMINOPHEN 500 MG TAB PO SCH; +BUPIVACAINE 0.5 % 5 MG/1 ML PF 10ML VIAL ONE; -CEFAZOLIN 2000MG 2,000 MG/15 ML SYR IV SCH; +FAMOTIDINE 20 MG TAB PO SCH; +GABAPENTIN 300 MG CAP PO SCH; -HEPARIN SOD 5,000 UNIT/0.5 ML VIAL SQ SCH; -LACTATED RINGER'S 1,000 ML IV SCH; -LR 15ML/HR IV SCH; +LR 500ML BOLUS, THEN 15ML/HR IV SCH; +LR 60ML/HR IV SCH; -MIDAZOLAM HCL 1 MG/ML 2ML VIAL ONE; +ORTHO JOINT MIX INFIL SCH; +ROPIVACAINE 0.5% 5 MG/ML 30 ML VIAL ONE; +TRANEXAMIC ACID 1,000 MG **IV Intra-op IV SCH; +TRANEXAMIC ACID 1,000 MG **IV Pre-op IV SCH; +ceFAZolin 2000MG 2,000 MG/15 ML SYR IV SCH; +dexAMETHasone 4 MG TAB PO SCH; -fentaNYL citrate 100 MCG/2 ML VIAL ONE
--- NOTE | 2023-05-12 08:00 | History & Physical Bridge Note ---
Date of Service May 12, 2023 History & Physical Bridge Note I have examined the patient, reviewed the History & Physical and in the interval since the performance of the History & Physical I have noted the following changes of clinical significance: no changes noted
[2023-05-12] MEDS ORDERED: MIDAZOLAM HCL 1 MG/ML 2ML VIAL ONE ×2 (08:08→09:29)
[2023-05-12] MEDS ORDERED: fentaNYL citrate PF 100 MCG/2 ML VIAL ONE (08:08)
[2023-05-12] MEDS ORDERED: ORTHO JOINT ANESTHETIC ONE (08:26)
[2023-05-12] MEDS ORDERED: fentaNYL citrate PF 100 MCG/2 ML VIAL IV PRN (08:46)
[2023-05-12] MEDS ORDERED: ePHEDrine sulfate 50 MG/ML AMP IV PRN (08:46)
[2023-05-12] MEDS ORDERED: ATROPINE SULFATE 0.1 MG/ML 10ML SYR IV PRN (08:46)
[2023-05-12] MEDS ORDERED: ONDANSETRON INJ 2 MG/ML 2 ML VIAL IV PRN ×2 (08:46→12:24)
--- NOTE | 2023-05-12 09:07 | Electrocardiogram Report ---
Test Reason : Blood Pressure : / mmHG Vent. Rate : 117 BPM Atrial Rate : 117 BPM P-R Int : 122 ms QRS Dur : 078 ms QT Int : 332 ms P-R-T Axes : 063 010 032 degrees QTc Int : 463 ms Sinus tachycardia with Premature atrial complexes Abnormal ECG When compared with ECG of 20-APR-2023 10:46, No significant change was found Confirmed by Marcello Brown ([id number]) on 05/12/2023 9:07:13 AM Referred By: Chris Moody Confirmed By:Marcello Brown
--- NOTE | 2023-05-12 10:18 | Operative Report ---
PG Post Operative Report Pre & Post Diagnosis Operation Date: 05/12/23 09:00 Pre-Op Diagnosis: Degenerative Joint Disease Right Knee Post-Op Diagnosis: Degenerative Joint Disease Right Knee I identified the patient and participated in the time-out.: Yes Procedure Operation Date: 05/12/23 09:00 Actual Procedures p Right Total Knee Arthroplasty(Right) - Chris Moody DO Surgeon Chris Moody DO Regulatory Affairs Specialist Chris Qureshi PA-C Estimated Blood Loss 30 Findings Consistent with Post-Op Diagnosis Specimens Right femoral tibial bone Description of Procedure Implants used: I used a Magalie Persona total knee arthroplasty system with a size 7 PS standard femur, F tibia, 34 oval patella, and a size 12 CPS polyethylene bearing. All components were cemented in place with Biomet cement. Santhosh arrived [facility] for the above procedure. He was seen in the preoperative holding area and the operative extremity was identified and signed. He was given a preoperative antibiotic, TXA, a spinal anesthetic and an adductor nerve block. He was taken back to the operating room and laid on the table in supine position. He was given basic sedation. The operative knee was then prepped and draped in sterile fashion. A timeout was done, and the patient and the operative extremity was properly identified. A midline incision was made directly over the patella. Dissection was taken down to the extensor mechanism. A medial parapatellar arthrotomy was used. The medial retinaculum was released and the fat pad was mostly excised. The knee was flexed and the ACL, PCL, and meniscus were removed. A drill was sent down the center of the femoral canal followed by an intramedullary rolando. Off that rolando a distal femoral cutting block was placed. 9 mm was resected off the distal femur at 5 of valgus. A posterior referencing AP sizing guide was then placed on the distal femur. The femur measured to be a size 7. 2 drill holes were placed in 3 of external rotation. A 4-in-1 cutting block was then impacted into place. Anterior, posterior, and chamfer cuts were then made. The proximal tibia was then exposed. An external tibial alignment guide was placed. A tibial cut guide was then anchored in place and the proximal tibia was then resected. The posterior aspect of the knee was then opened up and any additional meniscus fragments and osteophytes were removed. The tibia measured to be a size F. The tibial plate was then placed in the appropriate rotation and the tibia was drilled and punched. Trial components were then placed. I used a size 12 CPS polyethylene insert. The knee was brought through a full range of motion and felt to be stable. The peg holes for the femoral component were then drilled. The patella was then everted and 9 mm was resected off the posterior aspect of the patella. The patella measured to be a size 34 oval. 3 peg holes were then drilled. A trial patella was placed. The knee was once again brought through a full range of motion and felt to be stable. Trial components were then removed. The surrounding soft tissues were injected with 100 cc of an orthopedic pain control cocktail. All components were then cemented into place with Biomet cement. The final polyethylene insert was then snapped into place. Once cement was dry the tourniquet was deflated. Hemostasis was obtained. A dilute betadyne lavage was then done for 3 minutes. The joint was then irrigated with normal saline solution. The medial parapatellar arthrotomy was then closed with #1 Vicryl suture. The skin was closed with 2-0 Vicryl, 3-0V lock suture, and jayden. A soft compressive dressing was placed. He was then transferred to a hospital bed and taken to the postanesthesia care unit in stable condition. He tolerated the procedure well. Chris Qureshi PA-C, was present for the entire procedure. He was critical for patient positioning, prepping, draping, retraction exposure, wound closure and application of sterile dressing. I attest to the content of the Intraoperative Record and any orders documented therein. Any exceptions are noted below.
[2023-05-12] MEDS ORDERED: PROPOFOL IV EMULSION 10 MG/ML 20 ML VIAL IV ONE ×2 (10:27→12:46)
[2023-05-12] MEDS ORDERED: LIDOCAINE 2% 2 ML VIAL/AMP(20MG/ML) INFIL ONE (10:27)
[2023-05-12] MEDS ORDERED: PHENYLEPHRINE 100MCG/ML 10ML SYR IV ONE (10:27)
--- NOTE | 2023-05-12 11:17 | XRay Report ---
XR knee RT 1 or 2V routine CLINICAL HISTORY: Postoperative evaluation. COMPARISON: Knee radiographs March 14, 2023. FINDINGS: Alignment of the total right knee arthroplasty is anatomic. There is no periprosthetic fra cture or unexpected radiopaque foreign body. There are skin jayden. Vascular calcification is incide ntally noted. There is chondrocalcinosis. IMPRESSION: Expected findings following total right knee arthroplasty. ACT 112: Negative or not required by law. Electronically signed by: Ke Marie M.D. 05/12/2023 11:16 AM
[2023-05-12] MEDS ORDERED: NALOXONE HCL 0.4 MG/1 ML VIAL/CARP IV PRN (12:24)
[2023-05-12] MEDS ORDERED: MAGNESIUM HYDROXIDE SUSP 30 ML UDC PO PRN (12:24)
[2023-05-12] MEDS ORDERED: METOCLOPRAMIDE HCL INJ 5 MG/ML 2 ML VIAL IV PRN (12:24)
[2023-05-12] MEDS ORDERED: HYDROmorphone INJ 0.5 MG/0.5 ML SYR IV PRN (12:24)
[2023-05-12] MEDS ORDERED: bisacodyL 10 MG SUPP PR PRN (12:24)
[2023-05-12] MEDS ORDERED: oxyCODONE HCL IR 5 MG TAB (IMMEDIATE RELEASE) PO PRN (12:24)
[2023-05-12] MEDS ORDERED: SODIUM CHLORIDE 0.9% 1,000 ML IV SCH (12:24)
--- NOTE | 2023-05-12 13:22 | Anesthesiology Progress Note ---
Date of Service May 12, 2023 Anesthesia Post Procedure Vital Signs Vital Signs: Temp Pulse Pulse Pulse Resp BP Pulse Ox 05/12/23 12:47 88 05/12/23 12:26 97.7 F 81 20 172/86 H 98 05/12/23 12:09 97.5 F L 79 20 156/80 H 95 05/12/23 11:47 97.5 F L 79 18 156/80 H 95 05/12/23 11:30 97.5 F L 83 20 135/80 98 05/12/23 11:20 79 18 146/83 H 98 05/12/23 11:10 79 20 132/75 99 05/12/23 11:00 81 20 128/79 97 05/12/23 10:50 79 20 132/70 97 05/12/23 10:46 97.9 F 82 14 112/66 95 05/12/23 08:15 97.9 F 100 H 18 167/98 H 98 O2 Del Method 05/12/23 12:47 05/12/23 12:26 Room Air 05/12/23 12:09 Room Air 05/12/23 11:47 Room Air 05/12/23 11:30 Room Air 05/12/23 11:20 Room Air 05/12/23 11:10 Room Air 05/12/23 11:00 Room Air 05/12/23 10:50 Room Air 05/12/23 10:46 Room Air 05/12/23 08:15 Room Air Pain Intensity Bilateral Knee: Pain Intensity: 3 Chest: Pain Intensity: 4 Transfer of Care Handoff Completed per policy Notes Mental Status: alert / awake / arousable and participated in evaluation Patient Amnestic to Procedure: Yes Nausea / Vomiting: adequately controlled Pain: adequately controlled Airway Patency, RR, SpO2: stable & adequate BP & HR: stable & adequate Hydration State: stable & adequate Neuraxial Anesthesia: was administered and sensory block is resolving Anesthetic Complications: no major complications apparent and Pt Satisfied with anesthetic care
[2023-05-12] MEDS: ACETAMINOPHEN 500 MG TAB PO SCH ×2 (13:44→21:03)
[2023-05-12] MEDS ORDERED: lisinopril 20 MG TAB PO STA (15:00)
[2023-05-12] MEDS: ceFAZolin 2000MG 2,000 MG/15 ML SYR IV SCH (17:44)
--- NOTE | 2023-05-12 20:17 | Hospitalist Consultation ---
Date of Consultation May 12, 2023 Assessment & Plan (1) SVT (supraventricular tachycardia): Noted to have heart rate up to 170 following right knee arthroplasty Multifactorial including dehydration, pain medication, anxiety and infection Rate has been coming down and remains in sinus rhythm We will try cautious amount of intravenous fluid Check electrolytes and one-time troponin Monitor EKG (2) Status post right knee replacement: Status post right knee replacement Minimal pain at the right knee Management as per Ortho (3) Osteoarthritis of knees, bilateral: (4) Hypertension: Blood pressure remains stable on the upper side at 149/88 (5) Hyperlipidemia: Continue statin (6) Prostate cancer: No acute issue Plan GERD Continue Protonix DVT prophylaxis As per Ortho CODE STATUS Full History of Present Illness Reason for Consultation: SVT following right knee arthroplasty Attending Physician: Chris Moody, History of Present Illness He is a 72-year-old male with significant past medical history of hypertension, hyperlipidemia, GERD, history of Lyme disease and prostate cancer and osteoarthritis apparently underwent right total knee arthroplasty today. He was noted to be in SVT with a heart rate of around 170 following that surgery and was placed in telemetry unit and hospitalist consultation was requested. During my examination his heart rate has come down to around 117, sinus rhythm and he denies any symptoms of palpitation, shortness of breath or chest pain. His pain in the knee joint is controlled. Looked a little anxious but otherwise stable. Allergies Allergy/AdvReac Type Severity Reaction Status Date / Time [id number] Reductase AdvReac Mild Nausea Verified 05/12/23 08:03 Inhibitor Penicillins AdvReac Stomach Verified 05/12/23 08:03 Upset / Diarrhea Sulfa (Sulfonamide AdvReac Stomach Verified 05/12/23 08:03 Antibiotics) Upset / Diarrhea Home Medications Medication Instructions Recorded Confirmed Type omeprazole 20 mg tablet,delayed 20 mg PO QAM 03/21/18 05/12/23 History release pravastatin 10 mg tablet 10 mg PO QPM 03/21/18 05/12/23 History cartilage 40 mg-collagen II-boron 1 tab PO QAM 05/30/19 05/12/23 History 5 mg-hyaluronate sod 3.3 mg tablet (Move Free Ultra Triple Action (boron)) cyclobenzaprine 10 mg tablet 10 mg PO HS 05/30/19 05/12/23 History ibuprofen 200 mg tablet 200 mg PO Q6H PRN Pain 12/05/19 11/17/23 History vitamins-lipotropics 200 mg-100 mg 1 tab PO BID 06/14/19 05/12/23 History tablet (Lipo-Flavonoid Plus) lisinopril 20 mg tablet 20 mg PO QAM 06/09/21 05/12/23 History acetaminophen 500 mg tablet 500 mg PO Q6H PRN Pain 07/16/21 05/12/23 History evolocumab 140 mg/mL subcutaneous 140 mg subcut .every 2 weeks 01/25/23 05/12/23 History pen injector (Repatha SureClick) amlodipine 5 mg tablet 5 mg PO QAM 04/11/23 05/12/23 History amoxicillin 500 mg tablet 2,000 mg PO UD PRN dental 04/11/23 05/12/23 History appointments Patient History Medical History (Updated 05/12/23 @ 20:14 by Akilah Phillips MD) Prostate cancer Dx 2018, s/p radical prostatectomy Hx of Lyme disease 10+ years ago, denies residual issues Peyronie's disease Osteoarthritis GERD (gastroesophageal reflux disease) Per remote records Patient denies- states PPI is prophylactic for ibuprofen use Tinnitus Hypertension Hyperlipidemia Surgical History (Updated 05/12/23 @ 14:19 by Chris Moody DO) Elective surgery Right hand CMC joint sx (06/2022) History of total right hip replacement Right anterior EDDIE (07/16/21): Epidural at L3-4 (x2 attempts) at [facility] Hx of prostatectomy robotic prostatectomy with DaVinci 06/28/2019: Grade 2 view, MAC#3, ETT#7.5, atraumatic. No issues per anesthesia postop progress note. History of total left hip replacement 04/20/2018: SAB at L3-L4 x 1 attempt. No issues per anesthesia postop progress note. Overnight post-op stay without complication per surgeon discharge summary. History of surgery Right index finger (1966) Hx of tonsillectomy childhood History of prostate biopsy [address] Price [address] Castellano (Positive) History of arthroscopy Left knee (2004) History of colonoscopy 2006, 2016 Family History Mother , Passed age 91 of complications from scleroderma No problems noted. Father , Passed age 68 of heart disease complications No problems noted. Sister No problems noted. Sister No problems noted. Son No problems noted. Daughter No problems noted. Social History Smoking Status: Never smoker Second Hand Exposure: Yes (hx as child); Do You Dip or Chew Tobacco: No; Tobacco Cessation Education Requested by Patient: No Hx Alcohol Use: Yes Alcohol type: beer Alcohol Intake Frequency Comment: 6 beers/day give or take Hx Substance Use: No Preferred Language: Azerbaijani Communication Ability: Effective Visual Impairment: Limited Hearing Ability: Normal Cio Required: No Beliefs That Will Affect Care: None marital status: Current Living Situation: Spouse current occupational status: retired current occupation: Retired [employer] How many Children do You have: 2 How many Children do You have Comment: able to assist with care as needed. Other Information That Helps Us Care for You: No Feels Safe at Home: Yes Safety Concerns: Feels Safe At This Time Childhood Exposure to Second-Hand Smoke: Yes (Father smoked in home ) Diet: regular caffeine: Yes (2 cups of coffee/day ) during the past year weight has: remained stable Dental Care, Regularly: Yes Assistive Devices: Cane Review of Systems Review of Systems: All systems reviewed and are unremarkable except as noted below Physical Exam Physical Exam: Sitting on a chair without any acute distress Constitutional: well developed, well nourished, + ill appearing and + obese Eyes: PERRL, conjunctivae normal, anicteric sclerae ENMT: external ear and nose normal, oropharynx normal Neck: trachea midline, no thyromegaly Respiratory: no respiratory distress Auscultation: lungs clear to auscultation bilaterally Cardiovascular: Rate/Rhythm: regular rate, regular rhythm and + tachycardic Heart Sounds: normal S1 and normal S2; no murmur Extremities: no edema Gastrointestinal (Abdomen): Inspection/Auscultation: normal bowel sounds; abdomen not distended Percussion/Palpation: abdomen soft; abdomen nontender Musculoskeletal: No acute arthritis involving any joint but he is a status post right knee arth roplasty Neurologic: Alert, awake and oriented x3. No focal sensory and motor deficit appreciated Lymphatic: no cervical or axillary lymphadenopathy Results & Data Results & Data Vital Signs (Past 12 Hours) Vital Signs Temp Pulse Pulse Pulse Pulse Resp BP 05/12/23 19:45 117 H 90 18 149/88 H 05/12/23 16:35 96 H 05/12/23 15:47 37.2 C 70 19 158/81 H 05/12/23 15:35 174 H 05/12/23 13:45 36.5 C 85 18 177/96 H 05/12/23 12:47 88 05/12/23 12:26 36.5 C 81 20 172/86 H 05/12/23 12:09 36.4 C L 79 20 156/80 H 05/12/23 11:47 36.4 C L 79 18 156/80 H 05/12/23 11:30 36.4 C L 83 20 135/80 05/12/23 11:20 79 18 146/83 H 05/12/23 11:10 79 20 132/75 05/12/23 11:00 81 20 128/79 05/12/23 10:50 79 20 132/70 05/12/23 10:46 36.6 C 82 14 112/66 05/12/23 08:15 36.6 C 100 H 18 167/98 H Pulse Ox O2 Del Method 05/12/23 19:45 96 Room Air 05/12/23 16:35 05/12/23 15:47 98 Room Air 05/12/23 15:35 05/12/23 13:45 98 Room Air 05/12/23 12:47 05/12/23 12:26 98 Room Air 05/12/23 12:09 95 Room Air 05/12/23 11:47 95 Room Air 05/12/23 11:30 98 Room Air 05/12/23 11:20 98 Room Air 05/12/23 11:10 99 Room Air 05/12/23 11:00 97 Room Air 05/12/23 10:50 97 Room Air 05/12/23 10:46 95 Room Air 05/12/23 08:15 98 Room Air Medications Administered Current Inpatient Medications Acetaminophen (Acetaminophen 500 Mg Tab) 1,000 mg PO Q8 [facility] Stop: 06/11/23 13:59 Last Admin: 05/12/23 13:44 Dose: 1,000 mg Amlodipine Besylate (Amlodipine Besylate 5 Mg Tab) 5 mg PO QAM [facility] Stop: 06/12/23 08:59 Aspirin (Aspirin 81 Mg Ectab) 81 mg PO BID [facility] Stop: 06/11/23 20:59 Bisacodyl (Bisacodyl 10 Mg Supp) 10 mg NE DAILY PRN PRN Reason: Constipation Stop: 06/11/23 12:23 Cyclobenzaprine HCl (Cyclobenzaprine Hcl 10 Mg Tab) 10 mg PO HS [facility] Stop: 06/11/23 20:59 Dexamethasone (Dexamethasone 4 Mg Tab) 8 mg PO TODAY@08 [facility] Stop: 05/13/23 08:01 Docusate Sodium (Docusate Sodium 100 Mg Cap) 100 mg PO BID [facility] Stop: 06/11/23 20:59 Hydromorphone HCl (Hydromorphone Inj 0.5 Mg/0.5 Ml Syr) 0.5 mg IV Q4H PRN PRN Reason: Pain or Pre PT Stop: 05/26/23 12:23 Cefazolin Sodium (Ancef 2000mg) 2,000 mg in 15 mls @ 3.75 mls/min IV Q8H [facility]; Protocol Stop: 05/13/23 01:03 Last Admin: 05/12/23 17:44 Dose: 3.75 mls/min Lisinopril (Lisinopril 20 Mg Tab) 20 mg PO QAM [facility] Stop: 06/12/23 08:59 Magnesium Hydroxide (Magnesium Hydroxide Susp 30 Ml Udc) 30 ml PO Q6H PRN PRN Reason: Constipation Stop: 06/11/23 12:23 Metoclopramide HCl (Metoclopramide Hcl Inj 5 Mg/Ml 2 Ml Vial) 10 mg IV Q6H PRN PRN Reason: Nausea And Vomiting Stop: 06/11/23 12:23 Multivitamins (Multivitamin Tab) [facility]: 06/12/23 08:59 Naloxone HCl (Naloxone Hcl 0.4 Mg/1 Ml Vial/Carp) 0.1 mg IV Q5M PRN PRN Reason: Oversedation/Resp Depression Stop: 06/11/23 12:23 Ondansetron HCl (Ondansetron Inj 2 Mg/Ml 2 Ml Vial) 4 mg IV Q6H PRN PRN Reason: Nausea And Vomiting Stop: 06/11/23 12:23 Oxycodone HCl (Oxycodone Hcl Ir 5 Mg Tab (Immediate Release)) 5 - 10 mg PO Q4H PRN PRN Reason: Pain or Pre PT Stop: 05/26/23 12:23 Pantoprazole Sodium (Pantoprazole 40 Mg Tab) 40 mg PO QAM [facility] Stop: 06/12/23 08:59 Pravastatin Sodium (Pravastatin Sod 10 Mg Tab) 10 mg PO QPM [facility] Stop: 06/11/23 20:59 Sennosides (Senna 8.6 Mg Tab) 17.2 mg PO HS [facility] Stop: 06/11/23 20:59
[2023-05-12 20:36] LABS: Hemoglobin 13.5 g/dl (14.0-18.0); Mean Corpuscular Hemoglobin 29.9 pg (25.0-34.0); Mean Corpuscular Hgb Conc 34.6 g/dL (32.0-36.0); Mean Corpuscular Volume 86.3 fL (80.0-100.0); Mean Platelet Volume 8.9 fL (9.4-12.4); Platelet Count 451 K/uL (130-400); RDW Coefficient of Variation 12.1 % (11.5-14.5); RDW Standard Deviation 38.5 fL (36.4-46.3); Red Blood Count 4.52 M/uL (4.70-6.10); White Blood Count 17.72 K/ul (4.8-10.8)
[2023-05-12 20:47] LABS: Partial Thromboplastin Ratio 1.2; Partial Thromboplastin Time 35.2 Seconds (21.0-31.0)
[2023-05-12 20:51] LABS: Basophils # (auto) 0.04 K/uL (0.00-0.20); Basophils % (auto) 0.2 %; Immature Granulocytes # (auto) 0.14 K/uL (0.01-0.20); Immature Granulocytes % (auto) 0.8 %; Lymphocytes % (auto) 2.3 %; Monocytes # (auto) 0.74 K/uL (0.11-0.59); Monocytes % (auto) 4.2 %; Neutrophils % (auto) 92.5 %
[2023-05-12] MEDS ORDERED: SENNA 8.6 MG TAB PO SCH (21:00)
[2023-05-12] MEDS ORDERED: CYCLOBENZAPRINE HCL 10 MG TAB PO SCH (21:00)
[2023-05-12] MEDS ORDERED: PRAVASTATIN SOD 10 MG TAB PO SCH (21:00)
[2023-05-12] MEDS: ASPIRIN 81 MG ECTAB PO SCH (21:02)
[2023-05-12] MEDS: DOCUSATE SODIUM 100 MG CAP PO SCH (21:04)
[2023-05-12 21:06] LABS: Albumin Globulin Ratio 1.3 (0.9-2); Albumin Level 4.2 gm/dl (3.4-5.0); BUN Creatinine Ratio 10.4 (10-20); Bilirubin,Total 0.5 mg/dl (0.2-1.0); Est GFR (African American) 81.4 ml/min; Est GFR (Non-African American) 70.3 ml/min; Globulin 3.3 gm/dl (2.5-4.0); Magnesium 1.8 mg/dl (1.7-2.4); Total Protein 7.5 gm/dl (6.0-8.3)
[2023-05-12 21:21] LABS: Thyroid Stimulating Hormone 0.631 uIu/ml (0.300-4.500)
[2023-05-12] MEDS ORDERED: SODIUM CHLORIDE 0.9% 1,000 ML IV ONE (22:23)
[2023-05-12] MEDS: MAGNESIUM SULFATE / D5W 1 GM/100 ML BAG IV SCH (23:08)
[2023-05-13] MEDS: ceFAZolin 2000MG 2,000 MG/15 ML SYR IV SCH (00:50)
[2023-05-13] MEDS: MAGNESIUM SULFATE / D5W 1 GM/100 ML BAG IV SCH (00:50)
[2023-05-13 06:17] LABS: Hemoglobin 13.1 g/dl (14.0-18.0); Mean Corpuscular Hgb Conc 34.5 g/dL (32.0-36.0); Mean Corpuscular Volume 87.2 fL (80.0-100.0); Mean Platelet Volume 8.9 fL (9.4-12.4); Platelet Count 472 K/uL (130-400); RDW Coefficient of Variation 11.8 % (11.5-14.5); RDW Standard Deviation 37.8 fL (36.4-46.3); Red Blood Count 4.36 M/uL (4.70-6.10); White Blood Count 22.65 K/ul (4.8-10.8)
[2023-05-13 06:34] LABS: Calcium 9.7 mg/dl (8.6-10.3); Potassium 3.8 mmol/L (3.5-5.1)
[2023-05-13] MEDS: ACETAMINOPHEN 500 MG TAB PO SCH (06:37)
[2023-05-13 06:39] LABS: Est GFR (African American) 102.6 ml/min; Est GFR (Non-African American) 88.5 ml/min
[2023-05-13] MEDS ORDERED: dexAMETHasone 4 MG TAB PO SCH (08:00)
[2023-05-13] MEDS: DOCUSATE SODIUM 100 MG CAP PO SCH (08:01)
[2023-05-13] MEDS: ASPIRIN 81 MG ECTAB PO SCH (08:01)
--- NOTE | 2023-05-13 08:10 | Orthopedic Progress Note ---
Date of Service May 13, 2023 Assessment & Plan (1) Status post right knee replacement: Overall he is doing very well. He is not having much pain in the right knee. He will be seen by physical therapy today for ambulation and range of motion exercises. The nursing staff can change his dressing after physical therapy. They can use just an ABD and the thigh-high EUFEMIA hose stocking over top of it. He is on aspirin for DVT prophylaxis. He will be seen by the hospitalist again this morning. If the hospitalist feels he is stable for discharge and he can be discharged home today. Otherwise, he will need to stay until tomorrow. Josefina Trevizo was seen and examined at bedside this morning. Overall he is doing fairly well. Is not having too much pain in the right knee. He has been up and ambulating. His blood pressure has returned to normal but he is still a little bit tachycardic. He has been followed by the medicine team. He has no other complaints. Review of Systems All systems reviewed & are unremarkable except as noted in HPI & below. Physical Exam On physical examination of the right knee, the dressing is clean and dry. He is sitting in chair with his knee flexed at 90 degrees.. Results & Data Results & Data Laboratory Results . Diagnostic Findings Postoperative x-rays of the right knee show the prosthesis to be in anatomic alignment without any evidence of fracture complication, or loosening.. PG Care Time/CCT Total # of Minutes Spent Total Time Spent with Patient: Total time spent is greater than 50% in coordination of care (as documented) at patient's floor/unit and/or counseling patient: Coding Level of Care Code 16150 Post Operative Follow-Up Diagnoses Status post right knee replacement Z96.651
[2023-05-13] MEDS ORDERED: POTASSIUM CHLORIDE CRTAB 20 MEQ TABCR PO ONE (08:11)
[2023-05-13] MEDS ORDERED: amLODIPine BESYLATE 5 MG TAB PO SCH (09:00)
[2023-05-13] MEDS ORDERED: MAGNESIUM CHLORIDE W/CALCIUM 64MG DELAYED REL TAB PO SCH (09:00)
[2023-05-13] MEDS ORDERED: MULTIVITAMIN TAB PO SCH (09:00)
[2023-05-13] MEDS ORDERED: METOPROLOL TARTRATE 25 MG TAB PO SCH (09:00)
[2023-05-13] MEDS ORDERED: lisinopril 20 MG TAB PO SCH (09:00)
[2023-05-13] MEDS ORDERED: PANTOprazole 40 MG TAB PO SCH (09:00)
--- NOTE | 2023-05-13 13:12 | Hospitalist Progress Note ---
Date of Service May 13, 2023 Assessment & Plan (1) SVT (supraventricular tachycardia): Plan: Sinus tachycardia with PACs, PVCs Monitor and replace electrolytes as needed Started on low-dose metoprolol Asymptomatic Advised to follow-up with cardiology as outpatient for echo, event monitor Received IV fluids Leukocytosis Likely reactive secondary to post surgery, steroids No obvious signs of infection (2) Status post right knee replacement: Plan: Status post right knee replacement Continue wound care Management as per Ortho DVT Px per Ortho Bowel regimen to prevent constipation (3) Osteoarthritis of knees, bilateral: (4) Hypertension: Plan: Continue amlodipine, lisinopril (5) Hyperlipidemia: Plan: Continue statin (6) Prostate cancer: Plan: No acute issue Plan GERD Continue Protonix DVT prophylaxis As per Ortho CODE STATUS Full Admission and Anticipated Discharge Date Admission Date: May 12, 2023 Subjective Patient is seen and examined at bedside Knee pain at surgical site is controlled Denies any chest pain, palpitations, dizziness, shortness of breath, nausea, vomiting, abdominal pain PACs, few PVCs on monitor No other complaints Review of Systems Review of Systems: All systems reviewed & are unremarkable except as noted in Subjective Physical Exam Physical Exam: Physical Exam: Vitals signs as noted above General Appearance:Moderately built and nourished, no apparent distress Head: normocephalic, Atraumatic Eyes: normal inspection, EOMI Neck: supple, Trachea midline Respiratory/Chest: Normal breath sounds, CTA, No accessory muscle use Cardiovascular: Irregular, No murmur Abdomen/GI:Soft, Non tender, Bowel sounds present Extremities/Musculoskeletal:normal inspection, no edema, right knee surgical site in dressing Neurologic/Psych:AAOX3, grossly no focal neurological deficits Skin: normal color, warm Results & Data Results & Data Vital Signs (Past 12 Hours) Vital Signs Temp Pulse Pulse Pulse Resp BP Pulse Ox 05/13/23 11:59 36.9 C 90 19 136/86 96 05/13/23 11:58 37.0 C 90 18 127/80 97 05/13/23 08:00 108 H 05/13/23 07:53 37.0 C 124 H 18 127/80 97 05/13/23 03:00 36.5 C 112 H 20 157/92 H 96 O2 Del Method 05/13/23 11:59 Room Air 05/13/23 11:58 05/13/23 08:00 05/13/23 07:53 Room Air 05/13/23 03:00 Room Air Laboratory Results Short CBC 05/12/23 05/13/23 Range/Units 20:26 05:56 WBC 17.72 H 22.65 H (4.8-10.8) K/ul Hgb 13.5 L 13.1 L (14.0-18.0) g/dl Hct 39.0 L 38.0 L (42.0-52.0) % Plt Count 451 H 472 H (130-400) K/uL BMP 05/12/23 05/13/23 20:26 05:56 Sodium 130 L 133 L Potassium 4.0 3.8 Chloride 99 102 Carbon Dioxide 19 L 20 L BUN 11 10 Creatinine 1.06 0.83 Glucose 190 H 160 H Calcium 10.0 9.7 Liver Function 05/12/23 Range/Units 20:26 Total Bilirubin 0.5 (0.2-1.0) mg/dl AST 21 (13-39) U/L ALT 24 (7-52) U/L Alkaline Phosphatase 72 (34-104) U/L Albumin 4.2 (3.4-5.0) gm/dl
--- NOTE | 2023-05-15 18:59 | Electrocardiogram Report ---
Test Reason : Blood Pressure : / mmHG Vent. Rate : 111 BPM Atrial Rate : 127 BPM P-R Int : 132 ms QRS Dur : 080 ms QT Int : 338 ms P-R-T Axes : 056 013 049 degrees QTc Int : 459 ms Sinus tachycardia with occasional Premature ventricular complexes and PACs Otherwise normal ECG When compared with ECG of 12-MAY-2023 08:23, Premature ventricular complexes are now Present Confirmed by Frank More ([id number]) on 05/15/2023 6:59:03 PM Referred By: Chris Moody Confirmed By:Frank More
--- NOTE | 2023-05-15 19:14 | Electrocardiogram Report ---
Test Reason : Blood Pressure : / mmHG Vent. Rate : 121 BPM Atrial Rate : 121 BPM P-R Int : 116 ms QRS Dur : 078 ms QT Int : 314 ms P-R-T Axes : 020 001 031 degrees QTc Int : 445 ms Sinus tachycardia with Premature supraventricular complexes Premature ventricular complexes Cannot rule out Inferior infarct , age undetermined Abnormal ECG When compared with ECG of 12-MAY-2023 20:10, No significant change Confirmed by Frank More ([id number]) on 05/15/2023 7:14:38 PM Referred By: Chris Moody Confirmed By:Frank More
--- NOTE | 2023-05-15 19:25 | Electrocardiogram Report ---
Test Reason : Blood Pressure : / mmHG Vent. Rate : 121 BPM Atrial Rate : 121 BPM P-R Int : 118 ms QRS Dur : 078 ms QT Int : 326 ms P-R-T Axes : -10 001 028 degrees QTc Int : 462 ms Sinus tachycardia with Premature atrial complexes Inferior infarct (cited on or before 13-MAY-2023) Abnormal ECG When compared with ECG of 13-MAY-2023 06:54, Premature ventricular complexes are no longer Present Confirmed by Frank More ([id number]) on 05/15/2023 7:24:39 PM Referred By: Chris Moody Confirmed By:Frank More
== END 2023-05-13 12:38 | disposition home health service (06) ==
LOC: 2E 07:25 → ASU 07:25

== ENCOUNTER 2023-07-24 10:37 | Observation (INO) ==
--- NOTE | 2023-07-11 10:18 | Anesthesiology Consultation ---
Date of Service July 11, 2023 Assessment & Plan (1) Encounter for pre-operative examination: Plan - check EKG STAT am DOS. - right leg wound: surgeon's office made aware. To surgeon's discretion if patient can proceed with surgery. - Outpatient joint assessment: Patient is currently scheduled for inpatient pathway. If re-evaluated and patient/surgeon requests outpatient pathway, patient is acceptable candidate for outpatient joint program from anesthesia standpoint pending surgeon's office assessment of pt motivation/support/completion of same day joint program preop requirements. - Per paper steamer on 07/11/23: No known infectious disease contacts, current infectious disease symptoms in past 10 days or COVID positive test result in the past 30 days. Chart Review Chart Review: Acceptable Risk for Surgery and Patient NOT seen in Pre Admission Testing History Surgery Operation Date: 07/24/23 12:25 Proposed Procedures p Left Total Knee Arthroplasty - Chris Moody, Height/Weight Height: 5 ft 7.5 in Weight: 87.997 kg Allergies Allergy/AdvReac Type Severity Reaction Status Date / Time [id number] Reductase AdvReac Mild Nausea Verified 07/11/23 09:02 Inhibitor Penicillins AdvReac Stomach Verified 07/11/23 09:02 Upset / Diarrhea Sulfa (Sulfonamide AdvReac Stomach Verified 07/11/23 09:02 Antibiotics) Upset / Diarrhea Medications Home Medications Medication Instructions Recorded Confirmed Last Taken omeprazole 20 mg tablet,delayed 20 mg PO QAM 03/21/18 07/11/23 05/12/23 06:00 release pravastatin 10 mg tablet 10 mg PO QPM 03/21/18 07/11/23 05/11/23 20:30 cartilage 40 mg-collagen II-boron 1 tab PO QAM 05/30/19 07/11/23 04/28/23 5 mg-hyaluronate sod 3.3 mg tablet (Move Free Ultra Triple Action (boron)) cyclobenzaprine 10 mg tablet 10 mg PO HS 05/30/19 07/11/23 05/11/23 20:30 ibuprofen 200 mg tablet 200 mg PO Q6H PRN Pain 05/30/19 07/11/23 04/28/23 vitamins-lipotropics 200 mg-100 mg 1 tab PO BID 06/14/19 07/11/23 04/28/23 tablet (Lipo-Flavonoid Plus) acetaminophen 500 mg tablet 500 mg PO Q6H PRN Pain 07/16/21 07/11/23 05/12/23 06:00 500 mg evolocumab 140 mg/mL subcutaneous 140 mg subcut .every 2 weeks 01/25/23 07/11/23 05/10/23 pen injector (Annemarie Barba) amlodipine 5 mg tablet 5 mg PO QAM 04/11/23 07/11/23 05/12/23 06:00 amoxicillin 500 mg tablet 2,000 mg PO UD PRN dental 04/11/23 07/11/23 Unknown appointments amoxicillin 500 mg tablet 2,000 mg (4 x 500 mg) PO ONCE #4 06/07/23 07/11/23 Unknown tabs metoprolol tartrate 25 mg tablet 25 mg PO BID 07/11/23 07/11/23 Unknown Past Medical History Medical History GERD (gastroesophageal reflux disease) Per remote records Patient denies- states PPI is prophylactic for ibuprofen use Hx of Lyme disease 10+ years ago, denies residual issues Hyperlipidemia Hypertension Osteoarthritis Peyronie's disease Prostate cancer Dx 2019, s/p radical prostatectomy Tinnitus Past Family History Family History Mother , Passed age 91 of complications from scleroderma No problems noted. Father , Passed age 68 of heart disease complications No problems noted. Sister No problems noted. Sister No problems noted. Son No problems noted. Daughter No problems noted. Past Surgical History Surgical History Elective surgery Right hand CMC joint sx (06/2022) History of arthroscopy Left knee (2004) History of colonoscopy 2006, 2017 History of prostate biopsy [address] Price [address] Castellano (Positive) History of surgery Right index finger (1966) History of total left hip replacement 04/20/2018: SAB at L3-L4 x 1 attempt. No issues per anesthesia postop progress note. Overnight post-op stay without complication per surgeon dis charge summary. History of total right hip replacement Right anterior EDDIE (07/16/21): Epidural at L3-4 (x2 attempts) at [facility] History of total right knee replacement 05/12/23 [facility] Hx of prostatectomy robotic prostatectomy with DaVinci 06/28/2019: Grade 2 view, MAC#3, ETT#7.5, atraumatic. No issues per anesthesia postop progress note. Hx of tonsillectomy childhood Social History Smoking Status: Never smoker Do You Dip or Chew Tobacco: No Hx Alcohol Use: Yes Alcohol type: beer alcohol intake frequency: a few times a week Hx Substance Use: No substance use type: marijuana Substance Use Type Other:: medical Last Used Substance: Unknown Lab Results Anesthesia Preop Results Results Anesthesia Widget: WBC 11.09 K/ul (4.8-10.8) H 07/04/23 Hgb 13.0 g/dl (14.0-18.0) L 07/04/23 Hct 40.4 % (42.0-52.0) L 07/04/23 Plt 540 K/uL (130-400) H 07/04/23 Na 133 mmol/L (136-145) L 07/04/23 K 4.6 mmol/L (3.5-5.1) 07/04/23 Cl 98 mmol/L (98-107) 07/04/23 CO2 26 mmol/L (21-32) 07/04/23 BUN 9 mg/dl (6-23) 07/04/23 Creat 0.73 mg/dl (0.6-1.4) 07/04/23 Glucose Level 103 mg/dl (70-99(Fasting)) H 07/04/23 PT 10.6 Seconds (9.0-12.0) 07/04/23 PTT 34 Seconds (21-31) H 07/04/23 INR 1.0 (0.9-1.1) 07/04/23 TSH 0.631 uIu/ml (0.300-4.500) 05/12/23 Blood Type A Positive 07/04/23 Antibody Screen NEGATIVE 07/04/23 Testing Laboratory Results Follows with [facility] heme/onc for thrombocytosis. Electrocardiogram Date: 05/13/23 Sinus tachycardia with PACs, rate 121 bpm Inferior infarct, cited on or before 05/13/23 Chest X-Ray Date: 04/20/23 No acute cardiopulmonary findings.
[~2023-07-24 10:37] MED LIST changes: -ORTHO JOINT MIX INFIL SCH; +ROPIV 0.5% 246mg, Ketorolac 30mg, EPINEPHrine 0.5mg in NSS INFIL SCH; -dexAMETHasone 4 MG TAB PO SCH; +dexAMETHasone**PF** 10 MG/ML VIAL IV SCH
[2023-07-24] MEDS ORDERED: LIDOCAINE 2% 2 ML VIAL/AMP(20MG/ML) INFIL ONE (11:06)
[2023-07-24] MEDS ORDERED: PROPOFOL IV EMULSION 10 MG/ML 20 ML VIAL IV ONE (11:06)
[2023-07-24] MEDS ORDERED: ONDANSETRON INJ 2 MG/ML 2 ML VIAL ONE (11:06)
[2023-07-24] MEDS ORDERED: MIDAZOLAM HCL 1 MG/ML 2ML VIAL ONE ×2 (11:07)
--- NOTE | 2023-07-24 11:49 | History & Physical Bridge Note ---
Date of Service July 24, 2023 History & Physical Bridge Note I have examined the patient, reviewed the History & Physical and in the interval since the performance of the History & Physical I have noted the following changes of clinical significance: no changes noted
[2023-07-24] MEDS ORDERED: ORTHO JOINT ANESTHETIC ONE (12:33)
[2023-07-24] MEDS ORDERED: ARISTA ABSORBABLE HEMOSTAT 3GM TOP ONE (13:41)
--- OUTSIDE RECORDS SUMMARY | 2023-07-24 14:00 | External Medical Summary | Summary of Care ---
Author Name Unknown Organization [facility] Address [address] [facility] [address] Phone [phone] Care Team Providers Care Accounts Payable Analyst Name Role Phone Sivakumar Chris Benitoisa Primary Care Provider Reason for Visit * Reason Comments Outpatient Testing Encounter Details Date Type Department Care Team (Late st Contact Info) Description 07/10/2023 12:20 PM EST Laboratory Laboratory, [facility] [address] [facility] [phone] [facility] [address] [facility] [place] [address] Prostate cancer (HCC) Allergies Active Allergy Reactions Criticality Noted Date Comments Bactrim Abdominal pain 12/14/2010 Atorvastatin Calcium 08/16/2006 Nausea, diarrhea Lovastatin 08/16/2006 Nausea; diarrhea Niacin 08/16/2006 Upset stomach Penicillins 03/15/2017 Upset stomach Simvastatin 08/16/2006 Nausea, diarrhea documented as of this encounter (statuses as of 07/10/2023) Medications Medication Sig Dispensed Refills Start Date End Date Status ibuprofen (MOTRIN) 200 MG TabletIndications:d aily Take 4 Tablets by mouth. 0 Active Lidocaine 0.5 % External Gel Apply topically to affected area. Apply to joints as needed 0 Active Diclofenac Sodium 1 % External Gel (Voltaren) Apply topically to affected area 4 times a day as needed for Pain, Mild. Apply to joints as needed 50 g 5 10/11/2022 Active Additional Information Patient not taking.Reported on 06/12/2023 Amoxicillin 500 MG Oral Capsule (Amoxil) Prior to dental appointments 4 Capsule 1 10/11/2022 Active Additional Information Patient not taking.Reported on 03/13/2023 Lipoflavonoid Oral Tablet Take 1 Tablet by mouth in the morning and 1 Tablet before bedtime. 90 Tablet 1 10/11/2022 Active Pravastatin Sodium 10 MG Oral Tablet (Pravachol)Indicati ons:Dyslipidemia, goal to be determined TAKE 1 TABLET BY MOUTH IN THE MORNING 90 Tablet 1 01/04/2023 Active Omeprazole 20 MG Oral Capsule Delayed Release (PriLOSEC)Indicatio ns:Heartburn Take 1 capsule by mouth in the morning 90 Capsule 1 02/22/2023 Active amLODIPine Besylate 5 MG Oral Tablet (Norvasc)Indication s:HTN, goal below 140/90 Take 1 Tablet by mouth in the morning. 90 Tablet 5 03/13/2023 Active Iron-Vitamin C 65-125 MG Oral Tablet (Vitron C)Indications:Throm bocytosis,Iron deficiency Take 1 Tablet by mouth in the morning. 90 Tablet 1 04/14/2023 Active Additional Information Patient not taking.Reported on 06/12/2023 Cyclobenzaprine HCl 10 MG Oral Tablet (Flexeril)Indicatio ns:Chronic low back pain with sciatica, sciatica laterality unspecified, unspecified back pain laterality Take 1 Tablet by mouth at bedtime. 90 Tablet 1 05/23/2023 Active Repatha SureClick 140 MG/ML Subcutaneous Solution Auto-injector (evolocumab) Inject 140 mg (1 pen) under the skin every 14 days. 6 mL 3 05/24/2023 Active Metoprolol Tartrate 25 MG Oral Tablet (Lopressor) Take 1 Tablet by mouth in the morning and 1 Tablet before bedtime. 0 Active documented as of this encounter (statuses as of 07/10/2023) Active Problems Problem Noted Date Diagnosed Date Erectile dysfunction after radical prostatectomy 04/26/2022 Prostate cancer 02/25/2021 Obesity, Class I, BMI 30.0-34.9 (see actual BMI) 02/25/2021 Primary osteoarthritis of both knees 10/03/2019 Primary osteoarthritis of both first carpometaca rpal joints 03/28/2019 Primary osteoarthritis of right knee 03/28/2019 Elevated prostate specific antigen (PSA) 018 Hyperlipidemia with target LDL less than 100 BPH with obstruction/lower urinary tract symptom s 08/07/2013 Peyronie's disease 04/11/2006 HTN, goal below 140/90 04/11/2006 ADVANCE DIRECTIVE INFORMATION 08/22/2005 Overview: Yes, Patient instructed to provide copy of advance directive for provider to review and to be scanned into Electronic Medical Record documented as of this encounter (statuses as of 07/10/2023) Resolved Problems Problem Noted Date Diagnosed Date Resolved Date Prediabetes 03/08/2021 12/09/2021 Overview: Per Prediabetes protocol Lyme disease 12/14/2010 02/14/2017 Benign neoplasm of colon 08/23/2006 Overview: repeat colonoscopy in 10 years Hemorrhoids, external without complications 08/03/1998 02/14/2017 Mixed dyslipidemia 08/03/1998 9 Overview: Per Lipid Taxonomy. Episcleritis 02/14/2017 documented as of this encounter (statuses as of 07/10/2023) Immunizations Name Administration Dates Next Due COVID-19 mRNA, LNP-s, No Pre serve, 2-Dose Series (Gaudena) 04/01/2021,09/07/2020,08/03/2020 COVID-19, LNP-s, No Preserve , Sridhar-sucrose, Ages 12+ (Gaudena) 01/11/2022 COVID-19, MRNA-LNP, 23-24, P F, 30 MCG/0.3 mL, 12 YRS AND ABOVE, IM (PFIZER-Comirnaty) 04/19/2023 Pneumococcal Conjugate Vacc, 13 Valent (Prevnar) 02/14/2017 Pneumococcal Polysaccharide PPV23 (Pneumovax) 02/20/2018 Seasonal Influenza, PF, 6 M & above, IM , (FluLaval or Fluzone) 06/08/2018,05/20/2017 Seasonal Influenza, Quadriva lent Hd (Fluzone Hd) 03/13/2023 Seasonal Influenza, Split, I IV3, With Preserve, Inj 03/03/2014,05/20/2011,04/21/2010,05/05,05/14/2007 Seasonal Influenza, Trivalen t, Adjuvanted, 65+ yrs 04/01/2021,03/21/2020,02/28/2019 Seasonal Influenza, Trivalen t, High Dose, No Preserve, IM 03/22/2022 TD, Preservative Free 02/28/2019 TDAP (age 11 and older)(Adacel) 10/14/2008 Varicella Zoster Vaccine (Adult) 12/13/2012 documented as of this encounter Social History Tobacco Use Types Packs/Day Years Used Date Smoking Tobacco: Never Smokeless Tobacco: Never Alcohol Use Standard Drinks/Week Comments Yes 12.5 (1 standard drink = 0.6 oz pure alcohol) PHQ-2 Answer Date Recorded PHQ Adult Total Score 0 12/15/2022 Hunger Vital Sign Answer Date Recorded Worried About Running Out of Food in the Last Ye ar Never true 02/28/2019 Ran Out of Food in the Last Year Never true 02/28/2019 Sex and Gender Information Value Date Recorded Sex Assigned at Male 12/30/2019 12:25 PM EDT Gender Identity Male 12/30/2019 12:25 PM EDT Sexual Orientation Straight 12/30/2019 12 :25 PM EDT Job Start Date Occupation Industry Not on file Not on file Not on file documented as of this encounter Plan of Treatment Upcoming Encounters Date Type Department Care Team (Late st Contact Info) Description 07/19/2023 11:30 AM EST Telemedicine Urology Dolores Esc[facility] [address] [place] [address] Vel Masterson MD [address] [place] [address] 7, Telemed [facility] Urology Ex Rm [address] [place] [address] 07/21/2023 11:00 AM EST Office Visit Hematology/Oncology [facility] [place] [address] [facility] [id number] Urszula Ferrari CRNP [address] [place] [address] 07/25/2023 8:00 AM EST Office Visit Family Practice [facility] [address] [facility] [place] [address] Chris Shaver, [address] [facility] [place] [address] 07/28/2023 8:30 AM EST Cardiac Studies Cardiac Studies, [facility] [address] [facility] [place] [address] 10/20/2023 8:30 AM EDT Office Visit Cardiology, [facility] [address] [facility] [place] [address] Linh Zheng CRNP [address] [facility] [place] [address] Pending Results Name Type Priority Associated Diagnoses Date /Time PSA Lab Routine Prostate cancer (HCC) 07/10/2023 11:41 AM EST Scheduled Procedures Name Priority Associated Diagnoses Date/Ti me COLONOSCOPY FLEXIBLE PROXIMAL DIAGNOSTIC Recall Colon cancer screening Health Maintenance Due Date Last Done Comments Cologuard 1996 Fecal Occult Blood Test 1996 Sigmoidoscopy 1996 Zoster Vaccines (2 of 3) 02/07/2013 12/13/2012 *NEPHROLOGY REFERRAL DUE TO RESISTANT HTN 04/16/2023 Depression Screening 12/16/2023 12/15/2022 Albumin/Creatinine Ratio 02/26/2024 021, 04/14/2020, 06/01/2005 GFR 07/07/2024 07/07/2023, 05/27, 06/12/2023, Additional history exists Colonoscopy 03/29/2027 03/29/2017, 09/2016, 08/23/2006 Colorectal Cancer Screening 03/29/2027 Lipid Panel 11/01/2027 10/31/2022, 10/24, 02/25/2021, Additional history exists DTaP,Tdap,and Td Vaccines (3 - Td or Tdap) 02/28/2029 02/28/2019, 10/14/2008, 05/16/2000, Additional history exists Pneumococcal Vaccine: 65+ Years Completed 02/20/2018, 02/14/2017 Influenza Vaccine (FLU shot) Completed , 03/22/2022, 04/01/2021, Additional history exists COVID-19 Vaccine Completed 04/19/2023, , 04/01/2021, Additional history exists GARDASIL-HPV IMMUNIZATION SERIES Aged Out No longer eligible based on patient's age to complete this topic Hepatitis B Aged Out No longer eligi ble based on patient's age to complete this topic MENINGOCOCCAL (MENACTRA/MENVEO) Aged Out No longer eligible based on patient's age to complete this topic documented as of this encounter Medical Devices Not on filedocumented as of this encounter Visit Diagnoses Diagnosis Prostate cancer (HCC) Malignant neoplasm of prostate documented in this encounter Advance Directives Documents on File Type Date Recorded 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 POA Care Teams Accounts Payable Analyst Relationship Specialty Start Date End Date Chris Shaver DO [address] [place] [address] PCP - General Family Medicine 07/17/19 documented as of this encounter
--- OUTSIDE RECORDS SUMMARY | 2023-07-24 14:00 | External Medical Summary | Summary of Care ---
Author Name Unknown Organization [facility] Address [address] [facility] [address] Phone [phone] Care Team Providers Care Electroplater Name Role Phone Samaria Shaver Primary Care Provider Reason for Visit * Reason Comments Follow Up Encounter Details Date Type Department Care Team (Latest Contact Info) Description 07/19/2023 11:30 AM EST Telemedicine Urology Dolores Escobar [address] [place] [address] Vel Masterson MD [address] [place] [address] 7, Telemed [facility] Urology Ex Rm [address] [place] [address] Prostate cancer (HCC)*; Erectile dysfunction after radical prostatectomy Allergies Active Allergy Reactions Criticality Noted Date Comments Bactrim Abdominal pain 12/14/2010 Atorvastatin Calcium 08/16/2006 Nausea, diarrhea Lovastatin 08/16/2006 Nausea; diarrhea Niacin 08/16/2006 Upset stomach Penicillins 03/15/2017 Upset stomach Simvastatin 08/16/2006 Nausea, diarrhea documented as of this encounter (statuses as of 07/19/2023) Medications Medication Sig Dispensed Refills Start Date [...] before bedtime. 90 Tablet 1 10/11/2022 Active Additional Information Patient not taking.Reported on 07/19/2023 Omeprazole 20 MG Oral Capsule Delayed Release [...] and 1 Tablet before bedtime. 0 Active Pravastatin Sodium 10 MG Oral Tablet (Pravachol)Indicati ons:Dyslipidemia, goal to be determined TAKE 1 TABLET BY MOUTH IN THE MORNING 90 Tablet 1 07/12/2023 Active documented as of this encounter (statuses as of 07/19/2023) Active Problems Problem Noted Date Diagnosed Date [...] as of this encounter (statuses as of 07/19/2023) Resolved Problems Problem Noted Date Diagnosed Date Resolved Date Prediabetes 03/08/2021 12/09/2021 Overview: Per Prediabetes protocol Lyme disease 12/14/2010 02/14/2017 Benign neoplasm of colon 08/23/2006 Overview: repeat colonoscopy in 10 years Hemorrhoids, external without complications 08/03/1998 02/14/2017 Mixed dyslipidemia 08/03/1998 9 Overview: Per Lipid Taxonomy. Episcleritis 02/14/2017 documented as of this encounter (statuses as of 07/19/2023) Immunizations Name Administration Dates Next Due COVID-19 mRNA, LNP-s, No Pre serve, 2-Dose Series (gAuto) 04/01/2021,09/07/2020,08/03/2020 COVID-19, LNP-s, No Preserve , Sridhar-sucrose, Ages 12+ (Pfizer) 01/11/2022 COVID-19, MRNA-LNP, 23-24, P F, 30 [...] on file documented as of this encounter Progress Notes * Vel Masterson MD - 07/19/2023 11:39 AM EST [id number] PCP: SAMARIA SHAVER [address] [place] [address] [place] [address] [phone] Santhosh Thakur Jr. is a 73 year old male, who presents for 4 months f/u of his CAP. His past notes are reviewed. His PSA is down from previous. He notes he has had a R TKR since his last visit, pending a L TKR on Monday. He notes excellent healing from his previous intervention. We are quite pleased with the improvement of his PSA. Patient denies other changes in his voiding or general health Prostate Cancer: Presented locally Apr 2022. Treated with RALRP Jun 2019 with myself. pT3a [place] 4+5 CAP. Referred to Rad Onc Apr 2022, seen August 2022, declined intervention. Incontinence: Present postop. No safety pad. Nocturia x 2. Impotence: Post-prostatectomy. PSA Results: Lab Results Component Value Date/Time PSA - [facility] 0.09 07/10/2023 11:41 AM PSA - [facility] 0.14 03/09/2023 12:32 PM PSA - [facility] 0.10 10/31/2022 07:25 AM PSA - [facility] <0.02 04/14/2020 09:15 AM PSA - [facility] <0.02 11/26/2019 10:16 AM PSA - [facility] <0.02 09/16/2019 09:57 AM PSA SCREENING 11.95 (H) 01/19/2015 11:51 AM PSA SCREENING 7.27 (H) 11/17/2012 11:53 AM Current Outpatient Medications Medication Sig Dispense Refill Omeprazole 20 MG Oral Capsule Delayed Release (PriLOSEC) Take 1 capsule by mouth in the morning 90 Capsule 1 amLODIPine Besylate 5 MG Oral Tablet (Norvasc) Take 1 Tablet by mouth in the morning. 90 Tablet 5 Cyclobenzaprine HCl 10 MG Oral Tablet (Flexeril) Take 1 Tablet by mouth at bedtime. 90 Tablet 1 Repatha SureClick 140 MG/ML Subcutaneous Solution Auto-injector (evolocumab) Inject 140 mg (1 pen) under the skin every 14 days. 6 mL 3 Metoprolol Tartrate 25 MG Oral Tablet (Lopressor) Take 1 Tablet by mouth in the morning and 1 Tablet before bedtime. Pravastatin Sodium 10 MG Oral Tablet (Pravachol) TAKE 1 TABLET BY MOUTH IN THE MORNING 90 Tablet 1 ibuprofen (MOTRIN) 200 MG Tablet Take 4 Tablets by mouth. (Patient not taking: Reported on 07/19/2023) Lidocaine 0.5 % External Gel Apply topically to affected area. Apply to joints as needed (Patient not taking: Reported on 03/13/2023) Diclofenac Sodium 1 % External Gel (Voltaren) Apply topically to affected area 4 times a day as needed for Pain, Mild. Apply to joints as needed (Patient not taking: Reported on 06/12/2023) 50 g 5 Amoxicillin 500 MG Oral Capsule (Amoxil) Prior to dental appointments (Patient not taking: Reportedon 03/13/2023) 4 Capsule 1 Lipoflavonoid Oral Tablet Take 1 Tablet by mouth in the morning and 1 Tablet before bedtime. (Patient not taking: Reported on 07/19/2023) 90 Tablet 1 Iron-Vitamin C 65-125 MG Oral Tablet (Vitron C) Take 1 Tablet by mouth in the morning. (Patient nottaking: Reported on 06/12/2023) 90 Tablet 1 No current facility-administered medications for this visit. Review of patient's allergies indicates: Allergen Reactions Bactrim Abdominal pain Lipitor [Atorvastatin Calcium] Nausea, diarrhea Lovastatin Nausea; diarrhea Niaspan [Niacin] Upset stomach Penicillins Upset stomach Zocor [Simvastatin] Nausea, diarrhea Social History: Social History Tobacco Use Smoking status: Never Smokeless tobacco: Never Substance Use Topics Alcohol use: Yes Alcohol/week: 12.5 standard drinks of alcohol Types: 15 12 oz of beer per week Vaping/E-Cigarette Use Vaping/E-Cigarette Use Never User Vaping/E-Cigarette Substances Vaping/E-Cigarette Devices Family History Problem Relation Age of Onset Heart Disorder Father age 68, diffuse PVD as well, had bilat BKA Other (scleroderma [Other]) Mother scleroderma complicated by PAH Heart Disorder Uncle (Unspecified) Heart Disorder Uncle (Unspecified) Allergies Sister Musculo-skeletal Disorder Sister both have had joint replacements Past Surgical History: Procedure Laterality Date COLONOSCOPY THRU STOMA, W/BIOPSY 08/23/06 path-hyperplastic tissue-repeat in 10 years COLONOSCOPY, DIAGNOSTIC (RECTUM) 03/29/2017 diverticulosis, repeat 10 yrs/COLONOSCOPY FLEXIBLE PROXIMAL DIAGNOSTIC performed by Walter Camacho MD at ENDOSCOPY [facility] KNEE ARTHROSCOPY/MENISCUS REPAIR 04/01/05 Knee Scope,Med+Lat Menis Repair NEEDLE/PUNCH BIOPSY OF PROSTATE 01-01-08 Prostate,Needle/Punch Biopsy VASECTOMY 1981 Past Medical History: Diagnosis Date Backache Benign neoplasm of colon 08/23/06 repeat colonoscopy in 10 years BPH with obstruction/lower urinary tract symptoms Dyslipidemia, goal to be determined Episcleritis HTN, goal to be determined Peyronie's disease Patient Active Problem List Diagnosis Code ADVANCE DIRECTIVE INFORMATION Peyronie's disease N48.6 HTN, goal below 140/90 I10 BPH with obstruction/lower urinary tract symptoms N40.1, N13.8 Elevated prostate specific antigen (PSA) R97.20 Hyperlipidemia with target LDL less than 100 E78.5 Primary osteoarthritis of both first carpometacarpal joints M18.0 Primary osteoarthritis of right knee M17.11 Primary osteoarthritis of both knees M17.0 Prostate cancer (HCC) C61 Obesity, Class I, BMI 30.0-34.9 (see actual BMI) E66.9 Erectile dysfunction after radical prostatectomy N52.31 Constitutional: (-) fever and (-) chills ENT: (-) stridor Male : see HPI Neurology: (-) negative: no focal neurologic defect Psychiatry: (-) negative: no depression or anxiety Physical Exam Nursing note reviewed. Constitutional: General: He is not in acute distress. Appearance: He is not ill-appearing or toxic-appearing. HENT: Head: Normocephalic and atraumatic. Right Ear: External ear normal. Left Ear: External ear normal. Nose: Nose normal. Mouth/Throat: Mouth: Mucous membranes are moist. Eyes: Extraocular Movements: Extraocular movements intact. Pulmonary: Effort: Pulmonary effort is normal. No respiratory distress. Abdominal: General: There is no distension. Musculoskeletal: Cervical back: No rigidity. Skin: Coloration: Skin is not pale. Neurological: Mental Status: He is oriented to person, place, and time. Motor: No weakness. Psychiatric: Behavior: Behavior normal. Thought Content: Thought content normal. Impression/Plan: 73-year-old male with recurrent PSA for years after prostatectomy for aggressive prostate cancer. Findings reviewed with patient. Overall, we are pleased with the lack of progression of his PSA since his last visit. I think continued observation is reasonable in the short term. Will plan on repeat PSA in 6 months time. Patient remains uninterested salvage therapy. Patient can contact us sooner with any other changes in his urologic health. Above content is personally reviewed. Patient vocalizes good understanding of the treatment plan. . Vel Masterson MD 11:39 AM 07/19/2023 documented in this encounter Nursing Notes * Vandana Thibodeaux LPN - 07/19/2023 11:27 AM EST 4 month ret, PSA results. Patient presents alone. PSA Results: Lab Results Component Value Date/Time PSA - [facility] 0.09 07/10/2023 11:41 AM PSA - [facility] 0.14 03/09/2023 12:32 PM PSA - [facility] 0.10 10/31/2022 07:25 AM PSA - [facility] <0.02 04/14/2020 09:15 AM PSA - [facility] <0.02 11/26/2019 10:16 AM PSA - [facility] <0.02 09/16/2019 09:57 AM PSA SCREENING 11.95 (H) 01/19/2015 11:51 AM PSA SCREENING 7.27 (H) 11/17/2012 11:53 AM documented in this encounter Plan of Treatment Upcoming Encounters Date Type Department Care Team (Late st Contact Info) Description 07/21/2023 11:00 AM EST Office Visit [facility]ematology[facility]cology [facility] [address] [facility] [address] Urszula Ferrari CRNP [address] [facility] [place] [address] 08/31/2023 1:00 PM EST Office Visit Family Practice [facility] [address] [place] [address] Samaria Shaver DO [address] [place] [address] 10/20/2023 8:30 AM EDT Office Visit Cardiology, [facility] [address] [place] [address] Linh Zheng CRNP [address] [place] [address] 01/24/2024 10:45 AM EDT Office Visit Urology, [facility] [address] [place] [address] Vel Masterson MD [address] [place] [address] Scheduled Orders Name Type Priority Associated Diagnoses Orde r Schedule PSA Lab Routine Prostate cancer (HCC) Erectile dysfunction after radical prostatectomy Expected: 01/17/2024, Expires: 07/19/2024 Scheduled Procedures Name Priority Associated Diagnoses Date/Ti [...] this encounter Visit Diagnoses Diagnosis Prostate cancer (HCC)- Primary Malignant neoplasm of prostate Erectile dysfunction after radical prostatectomy documented in this encounter Advance Directives Documents on File Type Date Recorded 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
--- OUTSIDE RECORDS SUMMARY | 2023-07-24 14:00 | External Medical Summary ---
Author Name Unknown Address Unknown Organization [id number]:[facility] - [address] [place] [address] Laboratory Report Ordering Provider Test Date Status NICOLE ABURTO 07/21/2023 11:35:36 Final Observation Date Value Abnormality Reference (Units ) Status Iron 07/21/2023 11:35:36 33 Below low normal 45-176 (ug/dL) Final Iron-binding capacity 07/21/2023 11:35:36 364 250-425 (ug/dL) Final Transferrin Sat % 07/21/2023 11:35:36 9 Below low normal 15-55 (%) Final Performing Location [facility] - [address] [place] [address]
--- OUTSIDE RECORDS SUMMARY | 2023-07-24 14:00 | External Medical Summary | Summary of Care ---
Author Name Unknown Organization [facility] Address [address] [facility] [address] Phone [phone] Care Team Providers Care Director Of Optimization Name Role Phone Noah Shavervor Channing Primary Care Provider Reason for Visit * Reason Onset Date Comments Test Results 07/10/2023 Encounter Details Date Type Department Care Team (Late st Contact Info) Description 07/10/2023 Telephone Cardiology, [facility] [address] [place] [address] Linh Zheng CRNP [address] [place] [address] Test Results Allergies Active Allergy Reactions Criticality Noted Date Comments Bactrim Abdominal pain 12/14/2010 Atorvastatin Calcium 08/16/2006 Nausea, diarrhea Lovastatin 08/16/2006 Nausea; diarrhea Niacin 08/16/2006 Upset stomach Penicillins 03/15/2017 Upset stomach Simvastatin 08/16/2006 Nausea, diarrhea documented as of this encounter (statuses as of 07/10/2023) Medications Medication Sig Dispensed Refills Start Date End Date Status ibuprofen (MOTRIN) 200 MG TabletIndications :daily Take 4 Tablets by mouth. 0 Active [...] Active Pravastatin Sodium 10 MG Oral Tablet (Pravachol)Indica tions:Dyslipidemi a, goal to be determined TAKE 1 TABLET BY MOUTH IN THE MORNING 90 Tablet 1 01/04/2023 Active Omeprazole 20 MG Oral Capsule Delayed Release (PriLOSEC)Indicat ions:Heartburn Take 1 capsule by mouth in the morning 90 Capsule 1 02/22/2023 Active amLODIPine Besylate 5 MG Oral Tablet (Norvasc)Indicati ons:HTN, goal below 140/90 Take 1 Tablet by mouth in the morning. 90 Tablet 5 03/13/2023 Active Iron-Vitamin C 65-125 MG Oral Tablet (Vitron C)Indications:Thr ombocytosis,Iron deficiency Take 1 Tablet by mouth in the morning. 90 Tablet 1 04/14/2023 Active Additional Information Patient not taking.Reported on 06/12/2023 Cyclobenzaprine HCl 10 MG Oral Tablet (Flexeril)Indicat ions:Chronic low back pain with sciatica, sciatica laterality [...] and 1 Tablet before bedtime. 0 Active Carvedilol 6.25 MG Oral Tablet (Coreg) Take 1 Tablet by mouth in the morning and 1 Tablet before bedtime. 68 Tablet 11 06/28/2023 4 Discontinue d(Adverse reaction) documented as of this encounter (statuses as [...] mRNA, LNP-s, No Pre serve, 2-Dose Series ([employer]) 04/01/2021,09/07/2020,08/03/2020 COVID-19, LNP-s, No Preserve , Sridhar-sucrose, Ages 12+ (Pfizer) 01/11/2022 COVID-19, MRNA-LNP, 23-24, P F, 30 MCG/0.3 mL, 12 YRS AND ABOVE, IM ([employer]-Comirnaty) 04/19/2023 Diptheria/Tetanus (Adult) 08/03/19982008 Pneumococcal Conjugate Vacc, 13 Valent (Prevnar) 02/14/2017 Pneumococcal Polysaccharide PPV23 (Pneumovax) 02/20/2018 Seasonal Influenza, PF, 6 M & above, IM , (FluLaval or Fluzone) 06/08/2018,05/20/2017 Seasonal Influenza, Quadriva lent Hd (Fluzone Hd) 03/13/2023 Seasonal Influenza, Split, I IV3, With Preserve, Inj 03/03/2014,05/20/2011,04/21/2010,04/26,05/14/2007 Seasonal Influenza, Trivalen t, Adjuvanted, 65+ yrs [...] on file documented as of this encounter Miscellaneous Notes * Telephone Encounter - Linh Zheng CRNP - 07/10/2023 10:24 AM EST I reviewed nurse blood pressure check dated 07/07/2023. Blood pressure is fairly well controlled. Continue metoprolol tartrate 25 mg twice daily. Remain off lisinopril. No changes needed at this time however with persistently low sodium he may benefit from seeing Nephrology. Alcohol use could be contributing. * Telephone Encounter - Edda Foster LPN - 07/10/2023 10:08 AM EST Spoke to pt by phone. Pt says his sodium has been low for years. States he is having swelling in feet and ankles, improves some overnight. Says swelling started when he started taking beta blockers. Improved some since switching back on metoprolol. Med list updated. L knee replacement 07/24/23. [facility] is calling him 07/11/23 at 9am to discuss pre op. If there are med changes, he would like a call elisa so that he can relay that in his conversation tomorrow. * Telephone Encounter - Edda Foster LPN - 07/10/2023 9:58 AM EST ----- Message from FRANKLIN Garza sent at 07/10/2023 9:26 AM EST ----- Potassium level improved however sodium remains low. Please ask the patient about volume status. Since he continued to have swelling in his feet and ankles? documented in this encounter Plan of Treatment Upcoming Encounters Date Type Department Care Team (Late st Contact Info) Description 07/19/2023 11:30 AM EST Telemedicine Urology Dolores Escobar [address] [place] [address] Vel Masterson MD [address] [place] [address] 7, Telemed [facility] Urology Ex [address] [place] [address] 07/21/2023 11:00 AM EST Office Visit Hematology/Oncology [facility] [place] [address] [facility] [address] Urszula Ferrari CRNP [address] [place] [address] 07/25/2023 8:00 AM EST Office Visit Family Practice [facility] [place] [address] Chris Shaver, 132 [facility] [place] [address] 07/28/2023 8:30 AM EST Cardiac Studies Cardiac Studies, [facility] 132 [facility] [place] [address] 10/20/2023 8:30 AM EDT Office Visit Cardiology, [facility] 132 [facility] [place] [address] Linh Zheng CRNP 132 [facility] [place] [address] Scheduled Procedures Name Priority Associated Diagnoses Date/Ti [...] Not on filedocumented as of this encounter Advance Directives Documents on File Type Date Recorded Patient Loan Documentation Specialist Expl anation Advance Directives and Living Will 03/21/2003 LIVING WILL Power of Ship Carpenter 03/21/2003 POWER OF A TTORNEY [facility] Care Teams Director Of Optimization Relationship Specialty Start Date End Date Chris Shaver DO [address] [place] [address] PCP - General Family Medicine 07/17/19 documented as of this encounter
--- OUTSIDE RECORDS SUMMARY | 2023-07-24 14:00 | External Medical Summary ---
Author Name Unknown Address Unknown Organization K09:[facility] [place] [id number] Laboratory Report Ordering Provider Test Date Status NICOLE ABURTO 07/21/2023 11:35:36 Final Observation Date Value Abnormality Reference (Units ) Status WBC, Total 07/21/2023 11:35:36 11.84 Above high normal 4 .00-10.80 (K/uL) Final RBC 07/21/2023 11:35:36 4.70 4.50-5.25 (M/uL) Final Hemoglobin 07/21/2023 11:35:36 13.2 Below low normal 14 .0-16.8 (g/dL) Final HCT 07/21/2023 11:35:36 40.5 40.0-48.4 (%) Final MCV 07/21/2023 11:35:36 86.2 82.0-99.5 (fL) Final MCH 07/21/2023 11:35:36 28.1 27.0-34.0 (pg) Final MCHC 07/21/2023 11:35:36 32.6 32.0-36.0 (g/dL) Final RDW 07/21/2023 11:35:36 13.7 11.5-15.5 (%) Final Platelets 07/21/2023 11:35:36 549 Above high normal 14 0-400 (K/uL) Final MPV 07/21/2023 11:35:36 8.9 6.6-11.1 ( fL) Final Performing Location [facility] [place] [id number]
--- OUTSIDE RECORDS SUMMARY | 2023-07-24 14:00 | External Medical Summary | Summary of Care ---
Author Name Unknown Organization [facility] Address [address] [place] [facility] [place] [facility] [place] [address] Phone [phone] Care Team Providers Care Bow Maker Gift Wrapping Name Role Phone Chris Shaverisa Primary Care Provider Reason for Visit * Reason Comments Outpatient Testing Encounter Details Date Type Department Care Team (Late st Contact Info) Description 07/21/2023 12:00 PM EST Laboratory Laboratory [facility] [address] [place] [id number] [facility] [address] [place] [address] Thrombocytosis; Iron deficiency; Leukocytosis, unspecified type Allergies Active Allergy Reactions Criticality Noted Date Comments Bactrim Abdominal pain 12/14/2010 Atorvastatin Calcium 08/16/2006 Nausea, diarrhea Lovastatin 08/16/2006 Nausea; diarrhea Niacin 08/16/2006 Upset stomach Penicillins 03/15/2017 Upset stomach Simvastatin 08/16/2006 Nausea, diarrhea documented as of this encounter (statuses as of 07/21/2023) Medications Medication Sig Dispensed Refills Start Date [...] as of this encounter (statuses as of 07/21/2023) Active Problems Problem Noted Date Diagnosed Date [...] as of this encounter (statuses as of 07/21/2023) Resolved Problems Problem Noted Date Diagnosed Date Resolved Date Prediabetes 03/08/2021 12/09/2021 Overview: Per Prediabetes protocol Lyme disease 12/14/2010 02/14/2017 Benign neoplasm of colon 08/23/2006 Overview: repeat colonoscopy in 10 years Hemorrhoids, external without complications 08/03/1998 02/14/2017 Mixed dyslipidemia 08/03/1998 9 Overview: Per Lipid Taxonomy. Episcleritis 02/14/2017 documented as of this encounter (statuses as of 07/21/2023) Immunizations Name Administration Dates Next Due COVID-19 mRNA, LNP-s, No Pre serve, 2-Dose Series ([email or web address]) 04/01/2021,09/07/2020,08/03/2020 COVID-19, LNP-s, No Preserve , Sridhar-sucrose, [...] Care Team (Late st Contact Info) Description 08/04/2023 4:30 PM EST Telemedicine Hematology/Oncology [facility] [address] [facility] [place] [address] Urszula Ferrari CRNP [address] [place] [address] [place] [address] 08/31/2023 1:00 PM EST Office Visit Family Practice [facility] 132 [facility] [place] [address] Chris Shaver DO [address] [place] [address] 10/20/2023 8:30 AM EDT Office Visit Cardiology, [facility] 132 [facility] [place] [address] Linh Zheng CRNP 132 [facility] [place] [address] 01/24/2024 10:45 AM EDT Office Visit Urology, [facility] [place] [address] Vel Masterson MD [address] [facility] [address] [place] [address] Pending Results Name Type Priority Associated Diagnoses Date /Time CBC WITH WBC DIFFERENTIAL Lab Routine Thrombocytosis Iron deficiency Leukocytosis, unspecified type 07/21/2023 11:35 AM EST FERRITIN Lab Routine Thrombocytosis Iron deficiency Leukocytosis, unspecified type 07/21/2023 11:35 AM EST IRON SCREEN, INCLUDING TIBC Lab Routine Thrombocytosis Iron deficiency Leukocytosis, unspecified type 07/21/2023 11:35 AM EST CBC Lab Routine Thrombocytosis Iron deficiency Leukocytosis, unspecified type 07/21/2023 11:35 AM EST DIFFERENTIAL, AUTOMATED Lab Routine Thrombocytosis Iron deficiency Leukocytosis, unspecified type 07/21/2023 11:35 AM EST Scheduled Procedures Name Priority Associated [...] as of this encounter Visit Diagnoses Diagnosis Thrombocytosis Essential thrombocythemia Iron deficiency Iron deficiency anemia, unspecified Leukocytosis, unspecified type documented in this encounter Advance Directives Documents on File Type Date Recorded Patient Full Service Supervisor Expl anation Advance Directives and Living Will 03/21/2003 LIVING WILL Power of Ordering Machine Operator 03/21/2003 POWER OF A TTORNEY [facility] A Care Teams Bow Maker Gift Wrapping Relationship Specialty Start Date End Date Chris Shaver DO [address] [place] [address] PCP - General Family Medicine 07/17/19 documented as of this encounter
--- OUTSIDE RECORDS SUMMARY | 2023-07-24 14:00 | External Medical Summary | Summary of Care ---
Author Name Unknown Organization [facility] Address [address] [facility] [address] Phone [phone] Care Team Providers Care Title I Assistant Name Role Phone Samaria Shaver DO Primary Care Provider Reason for Visit * Reason Comments eRx-Medication Refill Encounter Details Date Type Department Care Team (Late st Contact Info) Description 07/11/2023 Refill Family Practice [facility] [address] [place] [address] Samaria Shaver DO [address] [place] [address] Dyslipidemia, goal to be determined Allergies Active Allergy Reactions Criticality Noted Date Comments Bactrim Abdominal pain 12/14/2010 Atorvastatin Calcium 08/16/2006 Nausea, diarrhea Lovastatin 08/16/2006 Nausea; diarrhea Niacin 08/16/2006 Upset stomach Penicillins 03/15/2017 Upset stomach Simvastatin 08/16/2006 Nausea, diarrhea documented as of this encounter (statuses as of 07/12/2023) Medications Medication Sig Dispensed Refills Start Date [...] to joints as needed 50 g 5 3 Active Additional Information Patient not taking.Reported on 06/12/2023 Amoxicillin 500 MG Oral Capsule (Amoxil) Prior to dental appointments 4 Capsule 1 3 Active Additional Information Patient not taking.Reported on 03/13/2023 Lipoflavonoid Oral Tablet Take 1 Tablet by mouth in the morning and 1 Tablet before bedtime. 90 Tablet 1 3 Active Omeprazole 20 MG Oral Capsule Delayed Release (PriLOSEC)Indicat ions:Heartburn Take 1 capsule by mouth in the morning 90 Capsule 1 3 Active amLODIPine Besylate 5 MG Oral Tablet (Norvasc)Indicati ons:HTN, goal below 140/90 Take 1 Tablet by mouth in the morning. 90 Tablet 5 3 Active Iron-Vitamin C 65-125 MG Oral Tablet (Vitron C)Indications:Thr ombocytosis,Iron deficiency Take 1 Tablet by mouth in the morning. 90 Tablet 1 3 Active Additional Information Patient not taking.Reported on 06/12/2023 Cyclobenzaprine HCl 10 MG Oral Tablet (Flexeril)Indicat ions:Chronic low back pain with sciatica, sciatica laterality unspecified, unspecified back pain laterality Take 1 Tablet by mouth at bedtime. 90 Tablet 1 3 Active Repatha SureClick 140 MG/ML Subcutaneous Solution Auto-injector (evolocumab) Inject 140 mg (1 pen) under the skin every 14 days. 6 mL 3 3 Active Metoprolol Tartrate 25 MG Oral Tablet (Lopressor) Take 1 Tablet by mouth in the morning and 1 Tablet before bedtime. 0 Active Pravastatin Sodium 10 MG Oral Tablet (Pravachol)Indica tions:Dyslipidemi a, goal to be determined TAKE 1 TABLET BY MOUTH IN THE MORNING 90 Tablet 1 4 Active Pravastatin Sodium 10 MG Oral Tablet (Pravachol)Indica tions:Dyslipidemi a, goal to be determined TAKE 1 TABLET BY MOUTH IN THE MORNING 90 Tablet 1 3 07/12/19 24 Discontinued documented as of this encounter (statuses as of 07/12/2023) Active Problems Problem Noted Date Diagnosed Date [...] as of this encounter (statuses as of 07/12/2023) Resolved Problems Problem Noted Date Diagnosed Date Resolved Date Prediabetes 03/08/2021 12/09/2021 Overview: Per Prediabetes protocol Lyme disease 12/14/2010 02/14/2017 Benign neoplasm of colon 08/23/2006 Overview: repeat colonoscopy in 10 years Hemorrhoids, external without complications 08/03/1998 02/14/2017 Mixed dyslipidemia 08/03/1998 9 Overview: Per Lipid Taxonomy. Episcleritis 02/14/2017 documented as of this encounter (statuses as of 07/12/2023) Immunizations Name Administration Dates Next Due COVID-19 mRNA, LNP-s, No Pre serve, 2-Dose Series ([employer]) 04/01/2021,09/07/2020,08/03/2020 COVID-19, LNP-s, No Preserve , Sridhar-sucrose, Ages 12+ (Pfizer) 01/11/2022 COVID-19, MRNA-LNP, 23-24, P F, 30 MCG/0.3 mL, 12 YRS AND ABOVE, IM ([employer]-Comirnaty) 04/19/2023 Pneumococcal Conjugate Vacc, 13 Valent (Prevnar) [...] encounter Miscellaneous Notes * Telephone Encounter - Jia Morales, [facility] - 07/12/2023 3:57 PM ESTSigned Prescriptions: Disp Refills Pravastatin Sodium 10 MG Oral Tablet (Prav*90 Tab*1 Sig: TAKE 1 TABLET BY MOUTH IN THE MORNINGAuthorizing Provider: SAMARIA SHAVER User: JIA MORALES documented in this encounter Plan of Treatment Upcoming Encounters Date Type Department Care Team (Late st Contact Info) Description 07/19/2023 11:30 AM EST Telemedicine Urology Dolores Escobar [address] [place] [address] [place] [address] Vel Masterson MD [address] [address] [place] [address] 7, Telemed [facility] Urology Ex Rm [address] [place] [address] 07/21/2023 11:00 AM EST Office Visit [facility]ematology/[facility] [address] Urszula Ferrari CRNP [address] [facility] [place] [address] 07/25/2023 8:00 AM EST Office Visit Family Practice [facility] [address] [place] [address] Samaria Shaver DO [address] [place] [address] 07/28/2023 8:30 AM EST Cardiac Studies Cardiac Studies, [facility] [address] [place] [address] 10/20/2023 8:30 AM EDT Office Visit Cardiology, [facility] [address] [place] [address] Linh Zheng CRNP [address] [place] [address] Scheduled Procedures Name Priority Associated Diagnoses Date/Ti [...] as of this encounter Visit Diagnoses Diagnosis Dyslipidemia, goal to be determined Other and unspecified hyperlipidemia documented in this encounter Advance Directives Documents on File Type Date Recorded Patient Reference Data Expert Expl anation Advance Directives and Living Will 03/21/2003 LIVING WILL Power of Women'S Garment Fitter 03/21/2003 POWER OF A TTORNEY [facility] Care Teams Title I Assistant Relationship Specialty Start Date End Date Samaria Shaver DO [address] [place] [address] PCP - General Family Medicine 07/17/19 documented as of this encounter
--- OUTSIDE RECORDS SUMMARY | 2023-07-24 14:00 | External Medical Summary | Summary of Care ---
Author Name Unknown Organization [facility] Address [address] [facility] [address] Phone [phone] Care Team Providers Care Connie Cleaner Name Role Phone Noah Shavervor Channing Primary Care Provider Reason for Visit * Reason Onset Date Comments Test Results 07/10/2023 Encounter Details Date Type Department Care Team (Late st Contact Info) Description 07/10/2023 Telephone Cardiology, [facility] [address] [place] [address] Linh Zheng CRNP [address] [place] [address] Test Results Allergies Active Allergy Reactions Criticality [...] mRNA, LNP-s, No Pre serve, 2-Dose Series ([employer]) 04/01/2021,09/07/2020,08/03/2020 COVID-19, LNP-s, No Preserve , Sridhar-sucrose, Ages 12+ (Pfizer) 01/11/2022 COVID-19, MRNA-LNP, 23-24, P F, 30 MCG/0.3 mL, 12 YRS AND ABOVE, IM ([employer]-Comirnaty) 04/19/2023 Diptheria/Tetanus (Adult) 08/03/19982008 Pneumococcal Conjugate Vacc, [...] encounter Miscellaneous Notes * Telephone Encounter - Lihn Zheng CRNP - 07/10/2023 10:24 AM EST [...] Med list updated. L knee replacement 07/24/23. [facility] calling him 07/11/23 at 9am to [...] [address] [place] [address] Vel Masterson MD [address] [place] [address] [place] [address] 7, Telemed [facility] Urology Ex [address] [place] [address] 07/21/2023 11:00 AM EST Office Visit Hematology/Oncology Jonathan Garcia [place] [address] [facility] [address] Urszula Ferrari CRNP [address] [place] [address] 07/25/2023 8:00 AM EST Office Visit Family Practice [facility] [place] [address] Chris Shaver, [address] [facility] [place] [address] 07/28/2023 8:30 AM EST Cardiac Studies Cardiac Studies, [facility] 132 [facility] [place] [address] 10/20/2023 8:30 AM EDT Office Visit Cardiology, [facility] [address] [facility] [place] [address] Linh Zheng CRNP 132 [facility] [place] [address] Scheduled Procedures Name Priority Associated Diagnoses Date/Ti [...] Documents on File Type Date Recorded Patient Junior Business Analyst Expl anation Advance Directives and Living Will 03/21/2003 LIVING WILL Power of Funeral Home Attendant 03/21/2003 POWER OF A TTORNEY [facility] Care Teams Connie Cleaner Relationship Specialty Start Date End Date Chris Shaver DO [address] [place] [address] PCP - General Family Medicine 07/17/19 documented as of this encounter
--- OUTSIDE RECORDS SUMMARY | 2023-07-24 14:00 | External Medical Summary | Summary of Care ---
Author Name Unknown Organization [facility] Address [address] [address] Phone [phone] Care Team Providers Care Reporting Analyst Name Role Phone Chris Shaver Primary Care Provider Reason for Referral * (Within 10 days (routine)) - Authorized Specialty Diagnoses / Procedures Referred By Contac t Referred To Contact Laboratory Diagnoses Thrombocytosis Leukocytosis, unspecified type Procedures MYGENVAR MYELOPROLIFERATIVE PANEL, NEXT GENERATION SEQUENCING Urszula Ferrari CRNP [address] [place] [address] Referral ID Status Reason Start Date Expiration Date V isits Requested Visits Authorized [id number] Authorized 07/21/2023 999 999 Reason for Visit * Reason Comments Follow Up F/U Encounter Details Date Type Department Care Team (Late st Contact Info) Description 07/21/2023 11:00 AM EST Office Visit Hematology/Oncology [facility] [place] [address] [facility] [address] Urszula Ferrari CRNP [address] [facility] [place] [address] Thrombocytosis*; Leukocytosis, unspecified type; Iron deficiency; Prostate cancer (HCC) Allergies Active Allergy Reactions Criticality Noted Date Comments Bactrim Abdominal pain 12/14/2010 Atorvastatin Calcium 08/16/2006 Nausea, diarrhea Lovastatin 08/16/2006 Nausea; diarrhea Niacin 08/16/2006 Upset stomach Penicillins 03/15/2017 Upset stomach Simvastatin 08/16/2006 Nausea, diarrhea documented as of this encounter (statuses as of 07/22/2023) Medications Medication Sig Dispensed Refills Start Date [...] as of this encounter (statuses as of 07/22/2023) Active Problems Problem Noted Date Diagnosed Date [...] as of this encounter (statuses as of 07/22/2023) Resolved Problems Problem Noted Date Diagnosed Date Resolved Date Prediabetes 03/08/2021 12/09/2021 Overview: Per Prediabetes protocol Lyme disease 12/14/2010 02/14/2017 Benign neoplasm of colon 08/23/2006 Overview: repeat colonoscopy in 10 years Hemorrhoids, external without complications 08/03/1998 02/14/2017 Mixed dyslipidemia 08/03/1998 9 Overview: Per Lipid Taxonomy. Episcleritis 02/14/2017 documented as of this encounter (statuses as of 07/22/2023) Immunizations Name Administration Dates Next Due COVID-19 mRNA, LNP-s, No Pre serve, 2-Dose Series ([employer]) 04/01/2021,09/07/2020,08/03/2020 COVID-19, LNP-s, No Preserve , Sridhar-sucrose, [...] on file documented as of this encounter Last Filed Vital Signs Vital Sign Reading Time Taken Comments Blood Pressure 144/83 07/21/2023 10:56 AM EST Pulse 86 07/21/2023 10:56 AM EST Temperature 36.4 C (97.6 F) 07/21/2023 10:[address] Respiratory Rate 18 07/21/2023 10:56 AM EST Oxygen Saturation 98% 07/21/2023 10:56 AM EST Inhaled Oxygen Concentration - - Weight 87.8 kg (193 lb 8 oz) 07/21/2023 10:56 AM EST Height - - Body Mass Index 29.86 04/14/2023 10:00 AM EDT documented in this encounter Progress Notes * Urszula Ferrari CRNP - 07/21/2023 11:00 AM EST Hematology/Oncology [facility] [address] [place] [address] Name: Santhosh Thakur Jr. Date: 07/21/2023 CHIEF COMPLAINT: Santhosh Thakur Jr. is a 73 year old male here today for f/u visit today. Patient of Dr. Edgardo Mendez. From Patient chart confirmed with patient. 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 S/P RALRP June 2019. pT3a Sin 4+5 CAP. Noted to have increasing PSA over the last year. He was referred to Rad/Onc in April 2022 but declined intervention and opted for continued surveillance. Follow with Urology. Also with history of DLD, HTN and OA. Patient following with [facility] for a nonhealing right lower leg ulcer. In February notedto have infection of ulceration and was treated with course of Cipro. Noted to have leukocytosis atthat time that improved after antibiotic treatment but did not completely resolve. Wound clinic also ordered duplex of BLE to assess for possible venous insufficiency. Has ongoing swelling of BLE. Wound is now completely healed and no clinical signs of infection present. Denies fever. Denies signs of infection elsewhere. Does urinate frequently but this is his baseline. Denies coughing. Denies diarrhea. Patient is scheduled for right knee replacement in April. Per patient ortho will not proceed with surgery with elevated WBC count. Worried about infection. Presurgical testing next . The only change he has noticed is itching of his skin but this is normal for him at change of season. Not worse after showers. Denies melena or hematochezia. Patient with multiple sites of OA. Takes ibuprofen 200 mg QID. Takes Omeprazole in the AM as GI prophylaxis. Ibuprofen has worked previously to control his pain but lately not as much. At times will supplement with Tylenol 500 mg TID at most. Has not taken prednisone for many months for joint pain. Last SI joint injection was February by [facility]. Previously took aspirin 81 mg TIW. Was told to stop this d/t excessive bruising by his PCP. Denies erythromelalgia or flushing. Denies drenching night sweats or unexplained weight loss. No known history of VTE. Component Latest Ref Rng 02/28/2019 04/14/2020 02/25/2021 02/20/2023 03/09/2023 WBC 4.00 - 10.80 K/uL 10.39 9.13 10.65 15.85 (H) 12.17 (H) RBC 4.50 - 5.25 M/uL 4.55 4.49 (L) 4.36 (L) 4.32 4.42 HGB 14.0 - 16.8 g/dL 14.3 13.6 (L) 14.1 13.3 (L) 13.6 (L) HCT 40.0 - 48.4 % 41.5 40.9 41.9 40.5 40.6 MCV 82.0 - 99.5 fL 91.2 91.1 96.1 93.8 91.9 MCH 27.0 - 34.0 pg 31.4 30.3 32.3 30.8 30.8 MCHC 32.0 - 36.0 g/dL 34.5 33.3 33.7 32.8 33.5 RDW 11.5 - 15.5 % 12.5 12.7 12.8 12.6 12.6 PLT 140 - 400 K/uL 466 (H) 406 (H) 463 (H) 438 (H) 496 (H) MPV 6.6 - 11.1 fL 9.0 9.4 9.3 8.9 8.5 Component Latest Ref Rn 04/11/2023 WBC 4.00 - 10.80 K/uL 13.86 (H) RBC 4.50 - 5.25 M/uL 4.65 HGB 14.0 - 16.8 g/dL 14.0 HCT 40.0 - 48.4 % 42.8 MCV 82.0 - 99.5 fL 92.0 MCH 27.0 - 34.0 pg 30.1 MCHC 32.0 - 36.0 g/dL 32.7 RDW 11.5 - 15.5 % 12.5 PLT 140 - 400 K/uL 490 (H) MPV 6.6 - 11.1 fL 9.0 HISTORY OF PRESENT ILLNESS: Santhosh Thakur Jr. is a 73 year old male with a history as outlined above. Currently here for f/u visit today. Patient had right knee replacement 05/12/23. Right knee replacement went well other thansignificant skin damage from adhesive drape. This is improving. Tried taking oral iron supplement for a couple weeks but experienced significant GI side effects so he stopped taking it. Has left kneereplacement scheduled for Monday. Did take baby aspirin for two weeks after surgery but is no longer taking it. Past Medical History: Diagnosis Date Backache Benign neoplasm of colon 08/23/06 repeat colonoscopy in 10 years BPH with obstruction/lower urinary tract symptoms Dyslipidemia, goal to be determined Episcleritis HTN, goal to be determined Peyronie's disease Past Surgical History: Procedure Laterality Date COLONOSCOPY THRU STOMA, W/BIOPSY 08/23/06 path-hyperplastic tissue-repeat in 10 years COLONOSCOPY, DIAGNOSTIC (RECTUM) 03/29/2017 diverticulosis, repeat 10 yrs/COLONOSCOPY FLEXIBLE PROXIMAL DIAGNOSTIC performed by Walter Camacho MD at [facility] KNEE ARTHROSCOPY/MENISCUS REPAIR 04/01/05 Knee Scope,Med+Lat Menis Repair NEEDLE/PUNCH BIOPSY OF PROSTATE 01-01-08 Prostate,Needle/Punch Biopsy VASECTOMY 1982 Social History Socioeconomic History Marital status: Spouse name: Ousmane Number of children: 2 Years of education: Not on file Highest education level: Not on file Occupational History 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 Tobacco Use Smoking status: Never Smokeless tobacco: Never Vaping Use Vaping Use: Never used Substance and Sexual Activity Alcohol use: Yes Alcohol/week: 12.5 standard drinks of alcohol Types: 15 12 oz of beer per week Drug use: No Sexual activity: Yes Partners: Female Other Topics Concern Not on file Social History Narrative Not on file Social Determinants of Health Financial Resource Strain: Not on file Food Insecurity: No Food Insecurity (02/28/2019) Hunger Vital Sign Worried About Running Out of Food in the Last Year: Never true Ran Out of Food in the Last Year: Never true Transportation Needs: Not on file Physical Activity: Not on file Stress: Not on file Social Connections: Not on file Intimate Partner Violence: Not on file Housing Stability: Not on file Review of patient's allergies indicates: Allergen Reactions Bactrim Abdominal pain Lipitor [Atorvastatin Calcium] Nausea, diarrhea Lovastatin Nausea; diarrhea Niaspan [Niacin] Upset stomach Penicillins Upset stomach Zocor [Simvastatin] Nausea, diarrhea Current Outpatient Medications Medication Sig Dispense Refill ibuprofen (MOTRIN) 200 MG Tablet Take 4 [...] taking: Reported on 07/19/2023) 90 Tablet 1 Omeprazole 20 MG Oral Capsule Delayed Release (PriLOSEC) Take 1 capsule by mouth in the morning 90 Capsule 1 amLODIPine Besylate 5 MG Oral Tablet (Norvasc) Take 1 Tablet by mouth in the morning. 90 Tablet 5 Iron-Vitamin C 65-125 MG Oral Tablet (Vitron C) Take 1 Tablet by mouth in the morning. (Patient nottaking: Reported on 06/12/2023) 90 Tablet 1 Cyclobenzaprine HCl 10 MG Oral Tablet (Flexeril) [...] MOUTH IN THE MORNING 90 Tablet 1 No current facility-administered medications for this visit. REVIEW OF SYSTEMS: See HPI - otherwise negative OBJECTIVE: Filed Vitals: 07/21/23 1056 BP: 144/83 Pulse: 86 Resp: 18 Temp: 36.4 C (97.6 F) TempSrc: Tympanic SpO2: 98% Weight: 87.8 kg (193 lb 8 oz) Wt Readings from Last 5 Encounters: 07/21/23 87.8 kg (193 lb 8 oz) 06/12/23 88 kg (194 lb) 04/14/23 88.2 kg (194 lb 6.4 oz) 03/13/23 88 kg (194 lb) 01/31/23 89.4 kg (197 lb 3.2 oz) PHYSICAL EXAM: General Appearance: No acute distress Lungs/Thorax: Normal - Clear to auscultation Heart: Normal - Regular rate and rhythm, normal S1, S2, no appreciable murmurs Pulses/Extremities: Trace - +1 BLE edema. Venous stasis changes. Multiple scars and bruising to BLE. Neurologic: Normal - Grossly intact LABS: Component Latest Ref Rng 07/07/2023 WBC 4.00 - 10.80 K/uL 11.04 (H) RBC 4.50 - 5.25 M/uL 4.48 HGB 14.0 - 16.8 g/dL 12.9 (L) HCT 40.0 - 48.4 % 38.0 (L) MCV 82.0 - 99.5 fL 84.8 MCH 27.0 - 34.0 pg 28.8 MCHC 32.0 - 36.0 g/dL 33.9 RDW 11.5 - 15.5 % 12.7 PLT 140 - 400 K/uL 485 (H) MPV 6.6 - 11.1 fL 8.5 Component Latest Ref Rn 07/07/2023 Neutrophils % 40.0 - 75.0 % 56.2 Lymphocytes % 18.0 - 42.0 % 23.1 Monocytes % 1.0 - 11.0 % 16.6 (H) Eosinophils % 0.0 - 6.0 % 3.6 Basophils % 0.0 - 2.0 % 0.5 Absolute Neutrophils 1.80 - 7.70 K/uL 6.21 Absolute Lymphocytes 1.00 - 4.80 K/ul 2.55 Absolute Monocytes 0.00 - 1.10 K/uL 1.83 (H) Absolute Eosinophils 0.00 - 0.70 K/uL 0.40 Absolute Basophils 0.00 - 0.20 K/uL 0.05 WBC 4.00 - 10.80 K/uL 11.04 (H) Component Latest Ref Rn 07/07/2023 BUN 6 - 20 mg/dL 9 Creatinine 0.6 - 1.2 mg/dL 0.9 Estimated Glomerular Filtration Rate >=60 mL/min >90 Sodium 135 - 146 mmol/L 131 (L) Potassium 3.5 - 5.1 mmol/L 4.4 Chloride 98 - 107 mmol/L 97 (L) CO2 22 - 32 mmol/L 23 Anion Gap 7 - 15 mmol/L 11 Glucose 70 - 120 mg/dL 101 Calcium 8.4 - 10.2 mg/dL 9.8 Albumin 3.8 - 5.0 g/dL 4.1 AST 10 - 50 U/L 25 Alkaline Phosphatase 35 - 130 U/L 92 Bilirubin, Total <=1.2 mg/dL 0.2 Protein 6.0 - 8.3 g/dL 7.2 ALT 10 - 50 U/L 18 IMPRESSION/PLAN: Thrombocytosis 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 Will move forward with MPN NGS to assess for genetic mutations consistent with MPN. Order placed. Patient had right knee replacement 05/12/23. Went well other than significant skin damage from adhesive drape. This is improving. Has left knee replacement scheduled for Monday. Tried taking oral iron supplement for a couple weeks but experienced significant GI side effects sohe stopped taking it. Slight worsening of anemia with Hgb of 12.9 noted on lab work from 07/07/23. Will repeat CBCd, iron screen and ferritin today. If further decline in iron studies noted will consider for IV iron therapy as patient is intolerant of oral iron. -Reviewed the rare but serious risk of infusion reactions, including anaphylaxis, with IV iron. Also discussed the use of rescue medications as needed to mitigate these risks. Patient voiced understanding and ultimately chose to proceed with IV iron infusion if indicated. Would consider resuming Aspirin 81 mg TIW as stopping this did not improve bruising. Continue to follow with Urology for management of prostate cancer. RTC in 2 weeks with me by telephone to review lab results FRANKLIN Gomez documented in this encounter Nursing Notes * Ana Aguilera LPN - 07/21/2023 10:57 AM EST Patient identifed by name and birthdate Do you have any concerns about pain management for today's visit? No Living Will or Advance Directive for Health Care as noted on the problem list. [facility] is a way you can talk to your provider on line through e-mail. Would you like to sign up? I can activate it for you? NO Filed Vitals: 07/21/23 1056 BP: 144/83 Pulse: 86 Resp: 18 Temp: 36.4 C (97.6 F) TempSrc: Tympanic SpO2: 98% Weight: 87.8 kg (193 lb 8 oz) Patient was instructed to not get up on the exam table/exam chair until directed and assisted by their provider; patient is to remain seated in the chair/ wheelchair/ exam table/ exam chair for fall prevention and safety reasons. Patient is aware to have assistance to step down off exam table/exam chair with personnel. Patient voiced full comprehension of instructions. documented in this encounter Plan of Treatment Upcoming Encounters Date Type Department Care Team (Late st Contact Info) Description 08/04/2023 4:30 PM EST Telemedicine Hematology/Oncology [facility] [address] [place] [address] Urszula Ferrari CRNP [address] [place] [address] 08/31/2023 1:00 PM EST Office Visit Family Practice [facility] [address] [facility] [place] [address] Chris Shaver DO [address] [facility] [place] [address] 10/20/2023 8:30 AM EDT Office Visit Cardiology, [facility] [address] [facility] [place] [address] Linh Zheng CRNP [address] [facility] [place] [address] 01/24/2024 10:45 AM EDT Office Visit Urology, [facility] [address] [facility] [place] [address] Vel Masterson MD [address] [facility] [address] [place] [address] Pending Results Name Type Priority Associated Diagnoses Date /Time MYGENVAR MYELOPROLIFERATIVE PANEL, NEXT GENERATION SEQUENCING Lab Routine Thrombocytosis Leukocytosis, unspecified type 07/21/2023 11:35 AM EST [...] Not on filedocumented as of this encounter Results * (ABNORMAL) IRON SCREEN, INCLUDING TIBC (07/21/2023 11:35 AM EST) Iron 33(L) 45 - 176 ug/dL 07/21/2023 9:23 PM EST [facility] Iron Binding Capacity 364 250 - 425 ug/dL 07/21/2023 9:23 PM EST [facility] Transferrin Saturation Percent 9(L) 15 - 55 % 07/21/2023 9:23 PM EST [facility] Blood Venous blood specimen / Unknown Venipuncture / Unknown 07/21/2023 11:35 AM EST 07/21/2023 11:35 AM EST Urszula Ferrari FRANKLIN LAB BLOOD ORDER JOSEILNE [facility] [address] [place] [address] * FERRITIN (07/21/2023 11:35 AM EST) Ferritin 39 30 - 400 ng/mL 07/21/2023 9:59 PM EST [facility]ORY [facility] Blood Venous blood specimen / Unknown Venipuncture / Unknown 07/21/2023 11:35 AM EST 07/21/2023 11:35 AM EST Urszula Ferrari FRANKLIN LAB BLOOD ORDER JOSELINE Performing Organization Address City/[facility]/ZIP Co de Phone Number LABORATORY [facility] [address] [place] [address] documented in this encounter Visit Diagnoses Diagnosis Thrombocytosis- Primary Essential thrombocythemia Leukocytosis, unspecified type Iron deficiency Iron deficiency anemia, unspecified Prostate cancer (HCC) Malignant neoplasm of prostate documented in this encounter Advance Directives Documents on File Type Date Recorded 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 Care Teams Reporting Analyst Relationship Specialty Start Date End Date Chris Shaver DO [address] [place] [address] PCP - General Family Medicine 07/17/19 documented as of this encounter
--- OUTSIDE RECORDS SUMMARY | 2023-07-24 14:00 | External Medical Summary | Summary of Care ---
Author Name Unknown Organization [facility] Address [address] [facility] [address] Phone [phone] Care Team Providers Care Sourcing Specialist Name Role Phone Noah Shavervor Channing Primary Care Provider Reason for Visit * Reason Onset Date Comments Test Results 07/10/2023 Encounter Details Date Type Department Care Team (Late st Contact Info) Description 07/10/2023 Telephone Cardiology, [facility] [address] [place] [address] Linh Zheng CRNP [address] [place] [address] Test Results Allergies Active Allergy Reactions Criticality [...] mRNA, LNP-s, No Pre serve, 2-Dose Series ([employer]) 04/01/2021,09/07/2020,08/03/2020 COVID-19, LNP-s, No Preserve , Sridhar-sucrose, Ages 12+ ([employer]) 01/11/2022 COVID-19, MRNA-LNP, 23-24, P F, 30 MCG/0.3 mL, 12 YRS AND ABOVE, IM ([employer]-Comirnaty) 04/19/2023 Diptheria/Tetanus (Adult) 08/03/19982008 Pneumococcal Conjugate Vacc, [...] encounter Miscellaneous Notes * Telephone Encounter - Edda Foster LPN - 07/10/2023 2:17 PM EST Sent mychart * Telephone Encounter - Linh Zheng CRNP [...] Med list updated. L knee replacement 07/24/23. [facility] is calling him 07/11/23 at 9am [...] [address] [place] [address] Vel Masterson MD [address] [place] [address] 7, Telemed [facility] Urology Ex Rm [address] [facility] [place] [address] 07/21/2023 11:00 AM EST Office [facility] [place] [address] [place] [address] Urszula Ferrari CRNP [address] [place] [address] 07/25/2023 8:00 AM EST Office Visit Family Practice [facility] [address] [place] [address] Chris Shaver DO [address] [place] [address] 07/28/2023 8:30 AM EST Cardiac Studies Cardiac Studies, [facility] [address] [facility] [place] [address] 10/20/2023 8:30 AM EDT Office Visit Cardiology, [facility] [address] [facility] [place] [address] Linh Zheng CRNP [address] [facility] [place] [address] Scheduled Procedures Name Priority Associated Diagnoses Date/Ti [...] Documents on File Type Date 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
--- OUTSIDE RECORDS SUMMARY | 2023-07-24 14:00 | External Medical Summary ---
Author Name Unknown Address Unknown Organization [id number]:[facility] [place] [address] Laboratory Report Ordering Provider Test Date Status NICOLE ABURTO 07/21/2023 11:35:36 Final Observation Date Value Abnormality Reference (Units ) Status SYNC LEUKOCYTES IN BLOOD BY AUTOMATED COUNT 07/21/2023 11:35:36 11.84 Above high normal 4.00-10.80 (K/uL) Final Segs 07/21/2023 11:35:36 61.4 40.0-75.0 (%) Final Lymphs % 07/21/2023 11:35:36 20.5 18.0-42.0 (%) Final Monos 07/21/2023 11:35:36 14.6 Above high normal 1.0-11.0 (%) Final Eosinophils 07/21/2023 11:35:36 3.0 0.0-6.0 (%) Final Basos 07/21/2023 11:35:36 0.5 0.0-2.0 (%) Final Absolute Segs 07/21/2023 11:35:36 7.26 1.80-7.70 (K/uL) Final Lymphs, absolute 07/21/2023 11:35:36 2.43 1.00-4.80 (K/ul) Final Monos, Abs 07/21/2023 11:35:36 1.73 Above high normal 0.00-1.10 (K/uL) Final Eos, Abs 07/21/2023 11:35:36 0.36 0.00-0.70 (K/uL) Final Basos, Abs 07/21/2023 11:35:36 0.06 0.00-0.20 (K/uL) Final Performing Location [facility] [place] [address]
--- OUTSIDE RECORDS SUMMARY | 2023-07-24 14:00 | External Medical Summary ---
Author Name Unknown Address Unknown Organization [id number]:[facility] [place] - [address] [place] [address] Laboratory Report Ordering Provider Test Date Status NICOLE ABURTO 07/21/2023 11:35:36 Final Observation Date Value Abnormality Reference (Units ) Status Ferritin 07/21/2023 11:35:36 39 30-400 (ng /mL) Final Performing Location [facility] - [address] [place] [address]
--- OUTSIDE RECORDS SUMMARY | 2023-07-24 14:00 | External Medical Summary ---
Author Name Unknown Address Unknown Organization K01:[facility] - [address] [place] [address] Laboratory Report Ordering Provider Test Date Status VENUS HERNANDEZ 07/10/2023 11:41:10 Final Observation Date Value Abnormality Reference (Units ) Status PSA 07/10/2023 11:41:10 0.09 <4.10 (ng/ mL) Final Performing Location [facility] - [address] [place] [address]
--- OUTSIDE RECORDS SUMMARY | 2023-07-24 14:01 | External Medical Summary ---
Author Name Unknown Address Unknown Organization [id number]:[facility] [place] [address] - [address] [place] [address] Laboratory Report Ordering Provider Test Date Status NICOLE ABURTO 07/07/2023 10:20:27 Final Observation Date Value Abnormality Reference (Units ) Status WBC, Total 07/07/2023 10:20:27 11.04 Above high normal 4 .00-10.80 (K/uL) Final RBC 07/07/2023 10:20:27 4.48 4.50-5.25 (M/uL) Final Hemoglobin 07/07/2023 10:20:27 12.9 Below low normal 14 .0-16.8 (g/dL) Final HCT 07/07/2023 10:20:27 38.0 Below low normal 40. 0-48.4 (%) Final MCV 07/07/2023 10:20:27 84.8 82.0-99.5 (fL) Final MCH 07/07/2023 10:20:27 28.8 27.0-34.0 (pg) Final MCHC 07/07/2023 10:20:27 33.9 32.0-36.0 (g/dL) Final RDW 07/07/2023 10:20:27 12.7 11.5-15.5 (%) Final Platelets 07/07/2023 10:20:27 485 Above high normal 14 0-400 (K/uL) Final MPV 07/07/2023 10:20:27 8.5 6.6-11.1 ( fL) Final Performing Location LAB[facility] [place] [facility] [place] [address]
--- OUTSIDE RECORDS SUMMARY | 2023-07-24 14:01 | External Medical Summary | Summary of Care ---
Author Name Unknown Organization [facility] Address [address] [facility] [place] [address] Phone [phone] Care Team Providers Care Architectural Model Maker Name Role Phone Sivakumar Chris Snell DO Primary Care Provider Reason for Visit * Reason Onset Date Comments Blood Pressure Check Blood Pressure Check 07/07/2023 Encounter Details Date Type Department Care Team (Latest Contact Info) Description 07/07/2023 10:00 AM EST Cardiac Studies Cardiac Studies, [facility] [address] [facility] [place] [address] HTN, goal below 140/90* Allergies Active Allergy Reactions Criticality Noted Date Comments Bactrim Abdominal pain 12/14/2010 Atorvastatin Calcium 08/16/2006 Nausea, diarrhea Lovastatin 08/16/2006 Nausea; diarrhea Niacin 08/16/2006 Upset stomach Penicillins 03/15/2017 Upset stomach Simvastatin 08/16/2006 Nausea, diarrhea documented as of this encounter (statuses as of 07/07/2023) Medications Medication Sig Dispensed Refills Start Date [...] 14 days. 6 mL 3 05/24/2023 Active Carvedilol 6.25 MG Oral Tablet (Coreg) Take 1 Tablet by mouth in the morning and 1 Tablet before bedtime. 68 Tablet 11 06/28/2023 Active documented as of this encounter (statuses as of 07/07/2023) Active Problems Problem Noted Date Diagnosed Date [...] as of this encounter (statuses as of 07/07/2023) Resolved Problems Problem Noted Date Diagnosed Date Resolved Date Prediabetes 03/08/2021 12/09/2021 Overview: Per Prediabetes protocol Lyme disease 12/14/2010 02/14/2017 Benign neoplasm of colon 08/23/2006 Overview: repeat colonoscopy in 10 years Hemorrhoids, external without complications 08/03/1998 02/14/2017 Mixed dyslipidemia 08/03/1998 9 Overview: Per Lipid Taxonomy. Episcleritis 02/14/2017 documented as of this encounter (statuses as of 07/07/2023) Immunizations Name Administration Dates Next Due COVID-19 mRNA, LNP-s, No Pre serve, 2-Dose Series ([employer]) 04/01/2021,09/07/2020,08/03/2020 COVID-19, LNP-s, No Preserve , Sridhar-sucrose, Ages 12+ ([employer]) 01/11/2022 COVID-19, MRNA-LNP, 23-24, P F, 30 MCG/0.3 mL, 12 YRS AND ABOVE, IM ([employer]-Comirnaty) 04/19/2023 Pneumococcal Conjugate Vacc, 13 Valent (Prevnar) [...] Sign Reading Time Taken Comments Blood Pressure 138/78 07/07/2023 10:05 AM EST Pulse - - Temperature - - Respiratory Rate - - Oxygen Saturation - - Inhaled Oxygen Concentration - - Weight - - Height - - Body Mass Index - - documented in this encounter Progress Notes * Urszula Perez, COT - 07/07/2023 9:57 AM EST Santhosh Thakur Jr. presented for blood pressure check per provider orders. The blood pressure was obtained using the left arm in the sitting position using a adult cuff. The results were charted in Vital Signs. BP Readings from Last 3 Encounters: 07/07/23 138/78 04/14/23 143/84 03/13/23 114/70 BP 138/78 (BP Site: Left Arm, BP Position: Sitting, BP Cuff Size: Regular) States he restarted Metoprolol approx 4 days ago -- notes that it makes him tired for about 2 hoursafter he takes it. Has not taken Carvedilol since resuming Metoprolol. Notes he is still having bilateral lower extremity swelling that improves at night "but there is always some amount of swelling." Patient denies headache, pressure in head, dizziness, lightheadedness, chest discomfort, focal neurological symptoms, change in vision, nose bleeds. Did patient take medications today? Yes - at approx 6:30 a.m. Patient was instructed to follow-up as per their next scheduled appt Pt states he is to have left knee replacement in 2 weeks and is wondering what he should be taking at this point. documented in this encounter Plan of Treatment Upcoming Encounters Date Type Department Care Team (Late st Contact Info) Description 07/07/2023 11:10 AM EST Laboratory Laboratory, [facility] [id number] [facility] [address] [facility] [place] [address] Thrombocytosis; Leukocytosis, unspecified type; HTN, goal below 140/90; Hyperkalemia; Hyponatremia; PAC (premature atrial contraction) 07/19/2023 11:30 AM EST Telemedicine Urology Dolores Esc[facility] [address] [place] [address] Vel Masterson MD [address] [facility] [address] [place] [address] 7, Telemed [facility] Urology Ex [address] [facility] [place] [address] 07/21/2023 11:00 AM EST Office Visit Hematology/Oncology [facility] [address] Urszula Ferrari CRNP [address] [facility] [place] [address] 07/25/2023 8:00 AM EST Office Visit Family Practice [facility] [address] [place] [address] Chris Shaver DO [address] [place] [address] 07/28/2023 8:30 AM EST Cardiac Studies Cardiac Studies, [facility] [place] [address] 10/20/2023 8:30 AM EDT Office Visit Cardiology, [facility] [address] [facility] [place] [address] Linh Zheng CRNP [address] [place] [address] Scheduled Orders Name Type Priority Associated Diagnoses Orde r Schedule BLOOD PRESSURE Procedures Routine HTN, goal below 140/90 Ordered: 07/07/2023 Scheduled Procedures Name Priority Associated Diagnoses Date/Ti me COLONOSCOPY FLEXIBLE PROXIMAL DIAGNOSTIC Recall Colon cancer screening Health Maintenance Due Date Last Done Comments Cologuard 1996 Fecal Occult Blood Test 1996 Sigmoidoscopy 1996 Zoster Vaccines (2 of 3) 02/07/2013 12/13/2012 *NEPHROLOGY REFERRAL DUE TO RESISTANT HTN 04/16/2023 Depression Screening 12/16/2023 12/15/2022 Albumin/Creatinine Ratio 02/26/2024 021, 04/14/2020, 06/01/2005 GFR 06/23/2024 06/23/2023, 05/26, 04/11/2023, Additional history exists Colonoscopy 03/29/2027 03/29/2017, 09/2016, [...] as of this encounter Visit Diagnoses Diagnosis HTN, goal below 140/90- Primary Unspecified essential hypertension Thrombocytosis Essential thrombocythemia Leukocytosis, unspecified type HTN, goal below 140/90 Unspecified essential hypertension Hyperkalemia Hyperpotassemia Hyponatremia Hyposmolality and/or hyponatremia PAC (premature atrial contraction) Supraventricular premature beats documented in this encounter Advance Directives Documents on File Type Date Recorded Patient Trouble Shooter Expl anation Advance Directives and Living Will 03/21/2003 LIVING WILL Power of Biofuels Plant Operations Engineer 03/21/2003 [facility] Care Teams Architectural Model Maker Relationship Specialty Start Date End Date Chris Shaver DO [address] [place] [address] PCP - General Family Medicine 07/17/19 documented as of this encounter
--- OUTSIDE RECORDS SUMMARY | 2023-07-24 14:01 | External Medical Summary ---
Author Name Unknown Address Unknown Organization [id number] [place] [address] [place] [address] Laboratory Report Ordering Provider Test Date Status NICOLE ABURTO 07/07/2023 10:20:27 Final Observation Date Value Abnormality Reference (Units ) Status BUN 07/07/2023 10:20:27 9 6-20 (mg/dL) Final Creatinine 07/07/2023 10:20:27 0.9 0.6-1.2 (mg/dL) Final Glomerular filtration rate/1.73 sq M.predicted [Volume Rate/Area] in Serum, Plasma or Blood by Creatinine-based formula (CKD-EPI) 07/07/2023 10:20:27 >90 >=60 (mL/min) Final eGFR is calculated based on the CKD-EPI 2020 equation SODIUM 07/07/2023 10:20:27 131 Below low normal 135 -146 (mmol/L) Final Potassium 07/07/2023 10:20:27 4.4 3.5-5.1 (m mol/L) Final Cl 07/07/2023 10:20:27 97 Below low normal 98- 107 (mmol/L) Final CO2 07/07/2023 10:20:27 23 22-32 (mmo l/L) Final Anion gap 07/07/2023 10:20:27 11 7-15 (mmol /L) Final Glucose 07/07/2023 10:20:27 101 70-120 (mg /dL) Final Albumin 07/07/2023 10:20:27 4.1 3.8-5.0 (g /dL) Final AST (Aspartate aminotransferase) 07/07/2023 10:20:27 25 10-50 (U/L) Fin al Alk Phos 07/07/2023 10:20:27 92 35-130 (U/ L) Final Bilirubin, Total 07/07/2023 10:20:27 0.2 <=1 .2 (mg/dL) Final Calcium 07/07/2023 10:20:27 9.8 8.4-10.2 ( mg/dL) Final Protein 07/07/2023 10:20:27 7.2 6.0-8.3 (g /dL) Final ALT (Alanine aminotransferase) 07/07/2023 10:20:27 18 10-50 (U/L) Javier pollack Performing Location [facility] [place] [address] [facility] [address]
--- OUTSIDE RECORDS SUMMARY | 2023-07-24 14:01 | External Medical Summary ---
Author Name Unknown Address Unknown Organization [facility] [address] [place] [address] Laboratory Report Ordering Provider Test Date Status NICOLE ABURTO 07/07/2023 10:20:27 Final Observation Date Value Abnormality Reference (Units ) Status SYNC LEUKOCYTES IN BLOOD BY AUTOMATED COUNT 07/07/2023 10:20:27 11.04 Above high normal 4.00-10.80 (K/uL) Final Segs 07/07/2023 10:20:27 56.2 40.0-75.0 (%) Final Lymphs % 07/07/2023 10:20:27 23.1 18.0-42.0 (%) Final Monos 07/07/2023 10:20:27 16.6 Above high normal 1.0-11.0 (%) Final Eosinophils 07/07/2023 10:20:27 3.6 0.0-6.0 (%) Final Basos 07/07/2023 10:20:27 0.5 0.0-2.0 (%) Final Absolute Segs 07/07/2023 10:20:27 6.21 1.80-7.70 (K/uL) Final Lymphs, absolute 07/07/2023 10:20:27 2.55 1.00-4.80 (K/ul) Final Monos, Abs 07/07/2023 10:20:27 1.83 Above high normal 0.00-1.10 (K/uL) Final Eos, Abs 07/07/2023 10:20:27 0.40 0.00-0.70 (K/uL) Final Basos, Abs 07/07/2023 10:20:27 0.05 0.00-0.20 (K/uL) Final Performing Location LAB[facility]ATORY [facility] [[email or web address]] [place] [address] [place] [address]
--- OUTSIDE RECORDS SUMMARY | 2023-07-24 14:01 | External Medical Summary | Summary of Care ---
Author Name Unknown Organization [facility] Address [address] [facility] [place] [address] Phone [phone] Care Team Providers Care Threat Monitoring Analyst Name Role Phone Sivakumar Chris Benitoisa Primary Care Provider Reason for Visit * Reason Comments Outpatient Testing Encounter Details Date Type Department Care Team (Late st Contact Info) Description 07/07/2023 11:10 AM EST Laboratory Laboratory, [facility] 132 [facility] [place] [phone] [facility] 132 [place] [address] Thrombocytosis; Leukocytosis, unspecified type; HTN, goal below 140/90; Hyperkalemia; Hyponatremia; PAC (premature atrial contraction) Allergies Active Allergy Reactions Criticality Noted Date [...] mRNA, LNP-s, No Pre serve, 2-Dose Series ([employer]) 04/01/2021,09/07/2020,08/03/2020 COVID-19, LNP-s, No Preserve , Sridhar-sucrose, Ages 12+ ([employer]) 01/11/2022 COVID-19, MRNA-LNP, 23-24, P F, 30 MCG/0.3 mL, 12 YRS AND ABOVE, IM ([employer]-Comirnaty) 04/19/2023 Pneumococcal Conjugate Vacc, 13 Valent (Prevnar) [...] [address] [place] [address] Vel Masterson MD [address] [place] [address] 7, Telemed [facility] Urology Ex [address] [place] [address] 07/21/2023 11:00 AM EST Office Visit Hematology/Oncology [address] [place], [place] [address] Urszula Ferrari [facility]NP [address] [facility] [place] [address] 07/25/2023 8:00 AM EST Office Visit Family Practice [facility] [address] [facility] [place] [address] Chris Shaver, [address] [place] [address] 07/28/2023 8:30 AM EST Cardiac Studies Cardiac Studies, [facility] 132 [facility] [place] [address] 10/20/2023 8:30 AM EDT Office Visit Cardiology, [facility] 132 [facility] [place] [address] Linh Zheng CRNP [address] [facility] [place] [address] Pending Results Name Type Priority Associated Diagnoses Date /Time COMPREHENSIVE METABOLIC PANEL Lab STAT Thrombocytosis Leukocytosis, unspecified type 07/07/2023 10:20 AM EST Scheduled Procedures Name Priority Associated [...] Not on filedocumented as of this encounter Procedures Procedure Name Priority Date/Time Associated Diagnosis Comments DIFFERENTIAL, AUTOMATED STAT 07/07/2023 10:20 AM EST Thrombocytosis Leukocytosis, unspecified type CBC STAT 07/07/2023 10:20 AM EST Thrombocytosis Leukocytosis, unspecified type CBC STAT 07/07/2023 10:20 AM EST Thrombocytosis Leukocytosis, unspecified type documented in this encounter Results * (ABNORMAL) DIFFERENTIAL, AUTOMATED (07/07/2023 10:20 AM EST) WBC 11.04(H) 4.00 - 10.80 K/uL 07/07/2023 10:25 AM EST [facility] [place] [facility] Neutrophils % 56.2 40.0 - 75.0 % 07/07/2023 10:25 AM EST [facility] [place] [address] Lymphocytes % 23.1 18.0 - 42.0 % 07/07/2023 10:25 AM EST [facility] [place] [address] Monocytes % 16.6(H) 1.0 - 11.0 % 07/07/2023 10:25 AM EST [facility] [place] [address] Eosinophils % 3.6 0.0 - 6.0 % 07/07/2023 10:25 AM EST [facility] [place] [address] Basophils % 0.5 0.0 - 2.0 % 07/07/2023 10:25 AM EST [facility] Absolute Neutrophils 6.21 1.80 - 7.70 K/uL 07/07/2023 10:25 AM EST [facility] [place] [facility] Absolute Lymphocytes 2.55 1.00 - 4.80 K/ul 07/07/2023 10:25 AM EST [facility] [place] [address] Absolute Monocytes 1.83(H) 0.00 - 1.10 K/uL 07/07/2023 10:25 AM EST [facility] [place] [address] Absolute Eosinophils 0.40 0.00 - 0.70 K/uL 07/07/2023 10:25 AM EST [facility] Absolute Basophils 0.05 0.00 - 0.20 K/uL 07/07/2023 10:25 AM EST [facility] [place] [facility] Blood Venous blood specimen / Unknown Venipuncture / Unknown 07/07/2023 10:20 AM EST 07/07/2023 10:20 AM EST Urszula REID LAB BLOOD ORDER JOSELINE [facility] [address] [place] [id number] * (ABNORMAL) CBC (07/07/2023 10:20 AM EST) WBC 11.04(H) 4.00 - 10.80 K/uL 07/07/2023 10:25 AM EST [facility] [place] [address] RBC 4.48 4.50 - 5.25 M/uL 07/07/2023 10:25 AM EST [facility] HGB 12.9(L) 14.0 - 16.8 g/dL 07/07/2023 10:25 AM EST [facility] HCT 38.0(L) 40.0 - 48.4 % 07/07/2023 10:25 AM EST LABORATORY [facility] [place] [address] MCV 84.8 82.0 - 99.5 fL 07/07/2023 10:25 AM EST LAB[facility]ATORY [facility] [place] [address] MCH 28.8 27.0 - 34.0 pg 07/07/2023 10:25 AM EST LAB[facility]ATORY [facility] [place] [address] MCHC 33.9 32.0 - 36.0 g/dL 07/07/2023 10:25 AM EST LABORATORY [facility] [place] [address]10 RDW 12.7 11.5 - 15.5 % 07/07/2023 10:25 AM EST LAB[facility]ATORY [facility] [place] [address] PLT 485(H) 140 - 400 K/uL 07/07/2023 10:25 AM EST LABORATORY [facility] [place] [address] MPV 8.5 6.6 - 11.1 fL 07/07/2023 10:25 AM EST LAB[facility]ATORY [facility] [place] [address] Blood Venous blood specimen / Unknown Venipuncture / Unknown 07/07/2023 10:20 AM EST 07/07/2023 10:20 AM EST Urszula REID LAB BLOOD ORDER JOSELINE [facility] [place] [address] [place] [address] documented in this encounter Visit Diagnoses Diagnosis Thrombocytosis Essential thrombocythemia Leukocytosis, unspecified type HTN, goal below 140/90 Unspecified essential hypertension Hyperkalemia Hyperpotassemia Hyponatremia Hyposmolality and/or hyponatremia PAC (premature atrial contraction) Supraventricular premature beats documented in this encounter Advance Directives Documents on File Type Date Recorded Patient Program Administrator Expl anation Advance Directives and Living Will 03/21/2003 LIVING WILL Power of Tail End Rider 03/21/2003 POWER OF A [facility] A Care Teams Threat Monitoring Analyst Relationship Specialty Start Date End Date Chris Shaver DO [address] [place] [address] PCP - General Family Medicine 07/17/19 documented as of this encounter
--- NOTE | 2023-07-24 14:22 | Operative Report ---
PG Post Operative Report Pre & Post Diagnosis Operation Date: 07/24/23 12:15 Pre-Op Diagnosis: Osteoarthritis of Left Knee Post-Op Diagnosis: Osteoarthritis of Left Knee I identified the patient and participated in the time-out.: Yes Procedure Operation Date: 07/24/23 12:15 Actual Procedures p Left Total Knee Arthroplasty(Left) - Chris Moody DO Surgeon Chris Moody DO Regional Sales Consultant Juan Ramsay PA-C Estimated Blood Loss 30 Findings Consistent with Post-Op Diagnosis Specimens Left femoral and tibial bone Description of Procedure Implants used: I used a Magalie Persona total knee arthroplasty system with a size 8 standard PS femur, E tibia, 31 oval patella, and a size 14 CPS polyethylene bearing. All components were cemented in place with Biomet cement. Santhosh aguirre [facility] for the above procedure. He was seen in the preoperative holding area and the operative extremity was identified and signed. He was given a preoperative antibiotic, TXA, a spinal anesthetic and an adductor nerve block. He was taken back to the operating room and laid on the table in supine position. He was given basic sedation. The operative knee was then prepped and draped in sterile fashion. A timeout was done, and the patient and the operative extremity was properly identified. A midline incision was made directly over the patella. Dissection was taken down to the extensor mechanism. A medial parapatellar arthrotomy was used. The medial retinaculum was released and the fat pad was mostly excised. The knee was flexed and the ACL, PCL, and meniscus were removed. A drill was sent down the center of the femoral canal followed by an intramedullary rolando. Off that rolando a distal femoral cutting block was placed. 9 mm was resected off the distal femur at 5 of valgus. A posterior referencing AP sizing guide was then placed on the distal femur. The femur measured to be a size 8. 2 drill holes were placed in 3 of external rotation. A 4-in-1 cutting block was then impacted into place. Anterior, posterior, and chamfer cuts were then made. The proximal tibia was then exposed. An external tibial alignment guide was placed. A tibial cut guide was then anchored in place and the proximal tibia was then resected. The posterior aspect of the knee was then opened up and any additional meniscus fragments and osteophytes were removed. The tibia measured to be a size E. The tibial plate was then placed in the appropriate rotation and the tibia was drilled and punched. Trial components were then placed. I used a size 14 CPS polyethylene insert. The knee was brought through a full range of motion and felt to be stable. The peg holes for the femoral component were then drilled. The patella was then everted and 9 mm was resected off the posterior aspect of the patella. The patella measured to be a size 31 oval. 3 peg holes were then drilled. A trial patella was placed. The knee was once again brought through a full range of motion and felt to be stable. Trial components were then removed. The surrounding soft tissues were injected with 100 cc of an orthopedic pain control cocktail. All components were then cemented into place with Biomet cement. The final polyethylene insert was then snapped into place. Once cement was dry the tourniquet was deflated. H emostasis was obtained. A dilute betadyne lavage was then done for 3 minutes. The joint was then irrigated with normal saline solution. The medial parapatellar arthrotomy was then closed with #1 Vicryl suture. The skin was closed with 2-0 Vicryl, 3-0V lock suture, and jayden. A soft compressive dressing was placed. He was then transferred to a hospital bed and taken to the postanesthesia care unit in stable condition. He tolerated the procedure well. Juan Ramsay PA-C, was present for the entire procedure. He was critical for patient positioning, prepping, draping, retraction exposure, wound closure and application of sterile dressing. I attest to the content of the Intraoperative Record and any orders documented therein. Any exceptions are noted below.
--- NOTE | 2023-07-24 14:38 | XRay Report ---
XR knee LT 1 or 2V routine HISTORY: 73 years-old Male Surgical Post Op left knee arthroplasty COMPARISON: 07/04/2023 TECHNIQUE: 2 views of the left knee FINDINGS: Total joint arthroplasty with patellar resurfacing. Anterior midline skin jayden with expected posto perative soft tissue swelling and deep tissue air. Arterial calcifications. IMPRESSION: Total joint arthroplasty with expected postoperative changes. ACT 112: Negative or not required by law. The above report was generated using voice recognition software. It may contain grammatical, syntax o r spelling errors. Electronically signed by: Gary Norwood M.D. 07/24/2023 2:36 PM
--- NOTE | 2023-07-24 14:53 | Electrocardiogram Report ---
Test Reason : Blood Pressure : / mmHG Vent. Rate : 084 BPM Atrial Rate : 084 BPM P-R Int : 152 ms QRS Dur : 078 ms QT Int : 386 ms P-R-T Axes : 029 020 045 degrees QTc Int : 456 ms Sinus rhythm with Premature atrial complexes Otherwise normal ECG When compared with ECG of 13-MAY-2023 09:06, Criteria for Inferior infarct are no longer Present Confirmed by Simón Richards ([id number]) on 07/24/2023 2:53:02 PM Referred By: Chris Moody Confirmed By:Smión Richards
[2023-07-24] MEDS ORDERED: METOCLOPRAMIDE HCL INJ 5 MG/ML 2 ML VIAL IV PRN (16:19)
[2023-07-24] MEDS ORDERED: oxyCODONE HCL IR 5 MG TAB (IMMEDIATE RELEASE) PO PRN (16:19)
[2023-07-24] MEDS ORDERED: MAGNESIUM HYDROXIDE SUSP 30 ML UDC PO PRN (16:19)
[2023-07-24] MEDS ORDERED: HYDROmorphone INJ 0.5 MG/0.5 ML SYR IV PRN (16:19)
[2023-07-24] MEDS ORDERED: SODIUM CHLORIDE 0.9% 1,000 ML IV SCH (16:19)
[2023-07-24] MEDS ORDERED: ONDANSETRON INJ 2 MG/ML 2 ML VIAL IV PRN (16:19)
[2023-07-24] MEDS ORDERED: bisacodyL 10 MG SUPP PR PRN (16:19)
[2023-07-24] MEDS ORDERED: NALOXONE HCL 0.4 MG/1 ML VIAL/CARP IV PRN (16:19)
--- NOTE | 2023-07-24 16:50 | Anesthesiology Progress Note ---
Date of Service July 24, 2023 Anesthesia Post Procedure Vital Signs Vital Signs: Temp Pulse Pulse Resp BP Pulse Ox O2 Del Method 07/24/23 16:05 36.6 C 101 H 16 137/80 96 Room Air 07/24/23 15:50 94 H 20 138/74 99 Nasal Cannula 07/24/23 15:35 90 16 141/76 H 98 Nasal Cannula 07/24/23 15:25 91 H 18 124/71 98 Nasal Cannula 07/24/23 15:15 36.4 C L 87 16 127/69 99 Nasal Cannula 07/24/23 15:05 89 18 123/66 99 Nasal Cannula 07/24/23 14:55 88 16 120/68 100 Nasal Cannula 07/24/23 14:45 86 18 117/65 100 Oxymask 07/24/23 14:35 84 16 104/63 100 Oxymask 07/24/23 14:25 36.8 C 85 12 98/58 L 99 Oxymask 07/24/23 11:05 36.7 C 97 H 20 168/85 H 99 Room Air O2 Flow Rate 07/24/23 16:05 07/24/23 15:50 2 07/24/23 15:35 2 07/24/23 15:25 2 07/24/23 15:15 2 07/24/23 15:05 2 07/24/23 14:55 2 07/24/23 14:45 4 07/24/23 14:35 4 07/24/23 14:25 6 07/24/23 11:05 Pain Intensity Left Shoulder: Pain Intensity: 2 Transfer of Care Handoff Completed per policy Notes Mental Status: alert / awake / arousable and participated in evaluation Nausea / Vomiting: adequately controlled Pain: adequately controlled Airway Patency, RR, SpO2: stable & adequate BP & HR: stable & adequate Hydration State: stable & adequate Neuraxial Anesthesia: was administered and sensory block is resolving Anesthetic Complications: no major complications apparent and Pt Satisfied with anesthetic care
[2023-07-24] MEDS: ACETAMINOPHEN 500 MG TAB PO SCH ×2 (17:28→21:51)
[2023-07-24] MEDS: KETOROLAC TROMETHAMINE 15 MG/ML VIAL IV SCH ×2 (17:28→21:51)
[2023-07-24] MEDS: ceFAZolin 2000MG 2,000 MG/15 ML SYR IV SCH (18:38)
[2023-07-24] MEDS: ASPIRIN 81 MG ECTAB PO SCH (20:12)
[2023-07-24] MEDS: METOPROLOL TARTRATE 25 MG TAB PO SCH (20:12)
[2023-07-24] MEDS: DOCUSATE SODIUM 100 MG CAP PO SCH (20:12)
[2023-07-24] MEDS ORDERED: PRAVASTATIN SOD 10 MG TAB PO SCH (21:00)
[2023-07-24] MEDS ORDERED: CYCLOBENZAPRINE HCL 10 MG TAB PO SCH (21:00)
[2023-07-24] MEDS ORDERED: SENNA 8.6 MG TAB PO SCH (21:00)
[2023-07-24] MEDS ORDERED: NON-FORMULARY MEDICATION (Vitamins-Lipotropics [Lipo-Flavonoid Plus] 200-100 mg Tablet) PO SCH (21:00)
[2023-07-25] MEDS: ceFAZolin 2000MG 2,000 MG/15 ML SYR IV SCH (04:14)
[2023-07-25] MEDS: KETOROLAC TROMETHAMINE 15 MG/ML VIAL IV SCH ×2 (04:14→10:28)
[2023-07-25] MEDS: ACETAMINOPHEN 500 MG TAB PO SCH (06:06)
[2023-07-25] MEDS ORDERED: dexAMETHasone 4 MG TAB PO SCH (08:00)
[2023-07-25] MEDS ORDERED: PANTOprazole 40 MG TAB PO SCH (09:00)
[2023-07-25] MEDS ORDERED: amLODIPine BESYLATE 5 MG TAB PO SCH (09:00)
[2023-07-25] MEDS ORDERED: MULTIVITAMIN TAB PO SCH (09:00)
[2023-07-25] MEDS: ASPIRIN 81 MG ECTAB PO SCH (09:09)
[2023-07-25] MEDS: METOPROLOL TARTRATE 25 MG TAB PO SCH (09:10)
[2023-07-25] MEDS: DOCUSATE SODIUM 100 MG CAP PO SCH (09:11)
--- NOTE | 2023-07-25 12:21 | Orthopedic Progress Note ---
Date of Service July 25, 2023 Assessment & Plan (1) Status post left knee replacement: Overall, he is doing quite well today with good pain control to the left knee. He will work with physical therapy later this morning to work on ambulation and range of motion exercises. He is on aspirin for DVT prophylaxis. He can be discharged home later this morning pending physical therapy evaluation. He does state that he does not want discharged with any pain medication. He notes pain is well-controlled on acetaminophen. He will follow-up with orthopedics in 2 weeks for postoperative care. Subjective . Santhosh was seen and evaluated at bedside this morning resting comfortably in no apparent distress. He notes that his pain is well-controlled to the left knee. He has been up and ambulating with no significant issues. He has yet to be seen by physical therapy today. He denies any other concerns today. Review of Systems All systems reviewed & are unremarkable except as noted in HPI & below. Physical Exam . On physical examination of the left knee, the dressings are clean, dry, and intact. His leg is out in full extension. He has active plantarflexion dorsiflexion to the left ankle. +2 DP and PT pulses. Less than 2-second capillary refill. Normal sensation. Neurovascular intact. Results & Data Results & Data Laboratory Results . Diagnostic Findings . Postoperative x-rays of the left knee show prosthesis to be in anatomical alignment with no signs of fracture complication or loosening. PG Care Time/CCT Total # of Minutes Spent Total Time Spent with Patient: Total time spent is greater than 50% in coordination of care (as documented) at patient's floor/unit and/or counseling patient: Coding Level of Care Code 36881 Post Operative Follow-Up Diagnoses Status post left knee replacement Z96.652
--- NOTE | 2023-07-25 12:23 | Discharge Summary ---
Date of Service July 25, 2023 Principal Diagnosis Same as "Discharge Diagnosis" noted below under Discharge Instructions. Discharge Exam . On physical examination of the left knee, the dressings are clean, dry, and intact. His leg is out in full extension. He has active plantarflexion dorsiflexion to the left ankle. +2 DP and PT pulses. Less than 2-second capillary refill. Normal sensation. Neurovascular intact. Discharge Data Procedures Performed Operation Date: 07/24/23 12:15 Actual Procedures p Left Total Knee Arthroplasty(Left) - Chris Moody DO Ordered Studies 07/24/23 05:00 US - OR guided needle placemen Stat Hospital Course (1) Status post left knee replacement: On July 24, 2023 Santhosh arrived at [facility] and underwent a left total knee arthroplasty performed by Dr. Moody with no complications. He had a spinal anesthetic. Postoperatively, he was started on aspirin for DVT prophylaxis and transferred to the general orthopedic floor in stable condition. His hospital course was uneventful. On postoperative day #1, his vital signs were stable and his pain was well-controlled. He participated well with physical therapy work on ambulation and range of motion exercises. He was then discharged home in stable condition. He will follow-up with orthopedics in 2 weeks for postoperative care. PG Care Time/CCT Total # of Minutes Spent Total Time Spent with Patient: Total time spent is greater than 50% in coordination of care (as documented) at patient's floor/unit and/or counseling patient: Discharge Plan Discharge Items Patient Disposition: Home - Home Health Services Reason For Visit: POST OP Discharge Diagnosis: Same Activity: Per Instructions section Non-emergency contact: Surgeon Call non-emergency contact if: your temperature is above 101.5, your wound has increased redness and your wound has increased drainage Follow-up/Referrals: Chris Shaver DO [Primary Care Provider] - Diet: Regular Addtl Attending Provider Instructions: Activity and Therapy Recommendations: * If you are using [facility] then therapy will be provided at your home until they feel you have accomplished all of your goals. * If you are using [facility] then Physical Therapy will be provided until they feel you are ready to start Outpatient Physical Therapy. * If you are not using home therapy then Outpatient Physical Therapy should start about 3-5 days from your day of surgery. Therapy will last about 6-10 weeks * It is important not to put a pillow under your knee when you are relaxing or sleeping. It is just as important to make sure you are getting your knee perfectly straight as it is to regain your knee bend. * You were shown a series of exercises in the hospital. Do these exercises three times each day including the exercises you were shown in physical therapy. * Get up and walk several times each day. For the first four weeks, try not to stand or walk for more than one hour at a time. If you do stand or walk for more than one hour, you will not hurt anything, but your leg will likely swell. * As you feel comfortable, you may change from the walker or crutches to a cane and then to independent walking. Medications: * Cefadroxil -take the antibiotic twice a day for 10 days to help prevent infection. * Doxycycline- take the antibiotic twice a day for 14 days as prescribed by wound care. * Aspirin Most patients will be required to take Aspirin 81mg twice a day for 6 weeks after surgery. This is obtained [id number] and a prescription is not necessary. * Other medications may be prescribed for specific circumstances. If you have any questions, please call the office at . * Resume previous home medications unless otherwise instructed TEDs/Elastic Stockings: The white elastic stockings help limit swelling and prevent blood clots from forming in your legs.~ The more you wear them, the more they work. Wear them for six weeks. Dressing Care: The dressing can be changed after physical therapy on postop day #1. Daily dry dressing changes for a few days, especially if the incision is still draining some. If the incision is not draining then you may leave the jayden open to air. If there is a little bit of drainage or if the jayden are getting stuck on your clothing then cover the incision with a dry dressing. The jayden will be removed at your 2 week follow-up appointment. Showering: You may shower 5 days from the day of surgery as long as the incision is no longer draining. You may shower with the jayden exposed. Let soapy water run over the jayden and pat them dry. Do not scrub or soak the incision. Things To Watch For: * Drainage from the incision site that occurs more than one week after your surgery. * Increased redness at the incision site. * Fever above 102 degrees Fahrenheit. * Unusual chest pain or shortness of breath. * Call [facility] at with any of the above problems Follow-Up Visit: Follow-up with Dr. Moody's PA (Chris Qureshi) 2-3 weeks after your day of surgery. He will remove your jayden and answer any questions. If you have any additional questions or concerns, Dr Moody is usually in the office at the same time and will be available An appointment was probably scheduled when you signed-up for surgery in the office. If you have any questions call Office Instructions: More detailed instructions as well as Frequently Asked Questions were provided in a folder by our office when you signed-up for surgery. Please review these instructions when you get home. If you have any further questions or concerns, please feel free to call the o ffice at [phone] Pending Studies at Discharge: No Stand-Alone Forms: My [facility], Pain - Opioid Pain Management, Smoking Cessation Medications and DC Order Prescriptions: New cefadroxil 500 mg capsule 500 mg PO BID 10 Days Qty: 20 0RF aspirin 81 mg Tablet,Delayed Release (Dr/Ec) 81 mg PO BID 42 Days Qty: 84 0RF Continued cyclobenzaprine 10 mg tablet 10 mg PO HS Move Free Ultra Triple Action 40-5-3.3 mg tablet 1 tab PO QAM Repatha SureClick 140 mg/mL pen injector 140 mg subcut .every 2 weeks Patient Comments: takes on and of each month doxycycline hyclate 100 mg tablet 100 mg PO bid Qty: 28 0RF pravastatin 10 mg Tablet 10 mg PO QPM Patient Comments: w/evening meal omeprazole 20 mg Tablet,Delayed Release (Dr/Ec) 20 mg PO QAM Lipo-Flavonoid Plus 200-100 mg Tablet 1 tab PO BID metoprolol tartrate 25 mg tablet 25 mg PO BID acetaminophen 500 mg Tablet 500 mg PO Q6H PRN (Reason: Pain) amlodipine 5 mg tablet 5 mg PO QAM amoxicillin 500 mg tablet 2,000 mg PO UD PRN (Reason: dental appointments) Discontinued ibuprofen 200 mg tablet 200 mg PO Q6H PRN (Reason: Pain) Patient Comments: has been taking 4 times per day Admission Data Admit Date/Time: 07/24/23 13:06 Attending Provider: Chris Moody Admit Provider: Chris Moody Primary Care Provider: Chris Shaver Other Interventions: Discharge Summary Assessment (RN) Last Done: 07/25/23 10:20
== END 2023-07-25 11:56 | disposition home health service (06) ==
LOC: 3N 10:37 → ASU 10:37